=== PATIENT | female | born 1950 | race African-American/Black ===

== ENCOUNTER 2019-11-19 08:59 | Emergency (ER) | payer MEDICAID, MEDICARE ==
[~2019-11-19] VITALS: Ht 165.1 cm; Wt 59.0 kg
[2019-11-19 09:15] VITALS: BP 157/101
--- NOTE | 2019-11-19 09:24 | Emergency Room Report ---
History of Present Illness General Chief Complaint: Chest Pain Source: Patient Present Illness HPI 69-year-old female history of CAD, stents in 2010, diabetes, hypertension presents with chest pain that started 1 day ago has been constant, described as pressure-like no known alleviating factors aggravating factors appear to be dyspnea with exertion, she does endorse shortness of breath no nausea no vomiting no diaphoresis patient presents for evaluation and treatment Allergies: Coded Allergies: LITHIUM (Verified Allergy, Unknown, 11/19/19) COVID-19 Screening Contact w/high risk pt: No Experienced COVID-19 symptoms?: No COVID-19 Testing performed ASBESTOS REMOVAL WORKER: No Patient History Past Medical History: see triage record Social History: Reports: smoking Last Menstrual Period: na Reviewed Nursing Documentation: PMH: Agreed; PSxH: Agreed Nursing Documentation-PMH Past Medical History: No History, Except For Hx Hypertension: Yes Hx Diabetes: Yes Review of Systems All Other Systems: negative except mentioned in HPI Physical Exam Vital Signs Date Time Temp Pulse Resp B/P (MAP) Pulse Ox O2 Delivery O2 Flow Rate FiO2 11/19/19 08:58 98.6 82 15 146/82 (103) 98 Room Air Sp02 EP Interpretation: reviewed, normal General Appearance: well appearing, no apparent distress, alert Head: normocephalic, atraumatic Eyes: bilateral eye PERRL, bilateral eye EOMI ENT: uvula midline, moist mucus membranes Neck: supple, thyroid normal, supple/symm/no masses Respiratory: lungs clear, no respiratory distress, no retraction, no accessory muscle use Cardiovascular #1: normal peripheral pulses, regular rate, rhythm, no edema, no gallop, no murmur Gastrointestinal: non tender, soft, no guarding, no rebound Musculoskeletal: normal inspection Neurologic: alert, oriented x3 Psychiatric: mood/affect normal Skin: no rash, warm/dry Procedures Critical Care Time Critical Care Time Given the critical condition in which the patient arrived, the patient was immediately assessed by myself and the nurse, and cardiac monitoring initiated due to the potential for rapid decompensation of the patient's clinical condition. During the course of the patient's stay, I spent a considerable amount of time at the bedside performing serial re-evaluations of the patient's hemodynamic and clinical status because of the recognized potential threat to life or limb in this condition. I then had a chance to review not only all of the available current laboratory and radiographic studies obtained today, but I also reviewed old records available to me at the time. Additionally, any ancillary information available including trademark attorney records were reviewed. Sequential vital signs were obtained. Critical Care time of 31 minutes was performed exclusive of billable procedures. Medical Decision Making Diagnostic Impression: Primary Impression: Chest pain Qualified Codes: R07.9 - Chest pain, unspecified Additional Impression: NSTEMI (non-ST elevated myocardial infarction) ER Course 69-year-old female presents with chest pain concerning for possible ACS, patient with multiple risk factors, aspirin given to the patient plan for admission Patient with an elevated troponin concern for NSTEMI Patient given Lovenox, aspirin and nitroglycerin, patient with improved pain plan for transfer to [facility] Patient accepted by Dr. Alvares [id number] Laboratory Tests Test 11/19/19 09:12 White Blood Count 11.2 K/UL (4.8-10.8) H Red Blood Count 4.82 M/UL (4.20-5.40) Hemoglobin 13.3 G/DL (12.0-16.0) Hematocrit 41.2 % (37.0-47.0) Mean Corpuscular Volume 85 FL (80-99) Mean Corpuscular Hemoglobin 27.6 PG (27.0-31.0) Mean Corpuscular Hemoglobin Concent 32.2 G/DL (32.0-36.0) Red Cell Distribution Width 16.5 % (11.6-14.8) H Platelet Count 321 K/UL (150-450) Mean Platelet Volume 6.5 FL (6.5-10.1) Neutrophils (%) (Auto) 78.3 % (45.0-75.0) H Lymphocytes (%) (Auto) 12.8 % (20.0-45.0) L Monocytes (%) (Auto) 5.5 % (1.0-10.0) Eosinophils (%) (Auto) 1.7 % (0.0-3.0) Basophils (%) (Auto) 1.7 % (0.0-2.0) Sodium Level 144 MMOL/L (136-145) Potassium Level 3.9 MMOL/L (3.5-5.1) Chloride Level 107 MMOL/L (98-107) Carbon Dioxide Level 27 MMOL/L (21-32) Anion Gap 10 mmol/L (5-15) Blood Urea Nitrogen 12 mg/dL (7-18) Creatinine 1.1 MG/DL (0.55-1.30) Estimated Glomerular Filtration Rate 59.9 mL/min (>60) Glucose Level 126 MG/DL (74-106) H Calcium Level 8.6 MG/DL (8.5-10.1) Total Bilirubin 0.5 MG/DL (0.2-1.0) Aspartate Amino Transferase (AST) 21 U/L (15-37) Alanine Aminotransferase (ALT) 23 U/L (12-78) Alkaline Phosphatase 98 U/L (46-116) Troponin I 0.237 ng/mL (0.000-0.056) Total Protein 7.3 G/DL (6.4-8.2) Albumin 3.3 G/DL (3.4-5.0) L Globulin 4.0 g/dL Albumin/Globulin Ratio 0.8 (1.0-2.7) L EKG Diagnostic Results EKG Time: 08:56 EP Interpretation: NSR, rate 73, QTc 458, no acute ST elevations, flipped T waves V5 V6 Rhythm Strip Diag. Results Rhythm Strip Time: 10:34 EP Interpretation: yes Rate: 64 Rhythm: NSR, no PVC's, no ectopy Chest X-Ray Diagnostic Results Chest X-Ray Diagnostic Results : Chest X-Ray Ordered: Yes # of Views/Limited/Complete: 1 View Indication: Chest Pain EP Interpretation: Yes Interpretation: no consolidation, no effusion, no pneumothorax, no acute cardiopulmonary disease Impression: No acute disease Electronically Signed by: dR Cason MD Last Vital Signs Date Time Temp Pulse Resp B/P (MAP) Pulse Ox O2 Delivery O2 Flow Rate FiO2 11/19/19 09:16 82 18 Room Air 11/19/19 09:15 98.4 157/101 100 Disposition: SHORT-TERM HOSP Condition: Serious Rd Cason MD Nov 19, 2019 09:24
[2019-11-19 09:27] LABS: BASOPHILS % (AUTO) 1.7 % (0.0-2.0); EOSINOPHILS % (AUTO) 1.7 % (0.0-3.0); HEMATOCRIT 41.2 % (37.0-47.0); HEMOGLOBIN 13.3 G/DL (12.0-16.0); LYMPHOCYTES % (AUTO) 12.8 % (20.0-45.0); MEAN CORPUSCULAR VOLUME 85 FL (80-99); MONOCYTES % (AUTO) 5.5 % (1.0-10.0); NEUTROPHILS % (AUTO) 78.3 % (45.0-75.0); PLATELET COUNT 321 K/UL (150-450); RED BLOOD COUNT 4.82 M/UL (4.20-5.40); RED CELL DISTRIBUTION WIDTH 16.5 % (11.6-14.8); WHITE BLOOD COUNT 11.2 K/UL (4.8-10.8)
[2019-11-19 09:47] LABS: CALCIUM 8.6 MG/DL (8.5-10.1); CREATININE 1.1 MG/DL (0.55-1.30); POTASSIUM 3.9 MMOL/L (3.5-5.1)
[2019-11-19 09:51] LABS: ALBUMIN 3.3 G/DL (3.4-5.0); ALBUMIN/GLOBULIN RATIO 0.8 (1.0-2.7); BILIRUBIN,TOTAL 0.5 MG/DL (0.2-1.0)
[2019-11-19] MEDS ORDERED: Enoxaparin 60mg Inj SUBQ ONE (10:00)
[2019-11-19] MEDS ORDERED: Nitroglycerin 2% oint pkt TOPIC ONE (10:00)
[2019-11-19] MEDS ORDERED: fentaNYL 100 mcg/2 mL IV ONE ×2 (11:21→11:30)
[2019-11-19 12:45] VITALS: BP 145/82
--- NOTE | 2019-11-19 13:43 | Diagnostic Imaging Report ---
Procedure: XRAY Chest 1v Reason for study: Chest pain Comparison films: 02/12/2009. FINDINGS: A single one view chest is obtained. Vascularity is normal. The lung rothman are clear bilaterally. Cardiac and mediastinal silhouette are within normal limits. CP angles are sharp. The bony thorax appear unremarkable. IMPRESSION: NO ACUTE CARDIOPULMONARY DISEASE.
== END 2019-11-19 12:45 | disposition short-term general hospital (02) ==
LOC: EDBD 08:59 → EMR 09:34
DX: I21.4 Non-ST elevation (NSTEMI) myocardial infarction (principal); R07.9 Chest pain, unspecified; I10 Essential (primary) hypertension; E11.9 Type 2 diabetes mellitus without complications; F17.200 Nicotine dependence, unspecified, uncomplicated; Z88.8 Allergy status to other drugs, medicaments and biological substances
CPT/HCPCS: 36415; 71045; 80053; 84484; 85025; 93005; 96372; 96374; J1650; J3010; U0002; Z7502; 99291

== ENCOUNTER 2019-11-23 00:58 | Emergency (ER) | payer MEDICARE, MEDICAID ==
[~2019-11-23] VITALS: Ht 170.2 cm; Wt 72.6 kg
--- NOTE | 2019-11-23 01:01 | NUR ---
ED Nurse Note: Pt brought in by RA Tanner from [facility], pt called 911 c/o chest pain, plueritic upon inhalation. Pt is A&OX3, VSS, pt placed on jewelry sales coordinator, Pt is non-compliant with medications. Poor historian.
--- NOTE | 2019-11-23 01:15 | NUR ---
ED Nurse Note: EKG performed by RN. IV line initiated, blood drawn and sent to lab. Pt placed in gown on monitor.
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
[2019-11-23 01:26] LABS: BASOPHILS % (AUTO) 0.9 % (0.0-2.0); EOSINOPHILS % (AUTO) 1.6 % (0.0-3.0); HEMATOCRIT 41.5 % (37.0-47.0); HEMOGLOBIN 13.2 G/DL (12.0-16.0); LYMPHOCYTES % (AUTO) 17.4 % (20.0-45.0); MEAN CORPUSCULAR VOLUME 88 FL (80-99); MONOCYTES % (AUTO) 4.2 % (1.0-10.0); NEUTROPHILS % (AUTO) 75.9 % (45.0-75.0); PLATELET COUNT 282 K/UL (150-450); RED BLOOD COUNT 4.71 M/UL (4.20-5.40); RED CELL DISTRIBUTION WIDTH 17.9 % (11.6-14.8); WHITE BLOOD COUNT 10.3 K/UL (4.8-10.8)
--- NOTE | 2019-11-23 01:26 | NUR ---
ED Nurse Note: Patient states she is unable to give urine sample and does not know when she will be able to give one.
[2019-11-23 01:29] VITALS: BP 151/94
[2019-11-23 01:37] LABS: ANION GAP 10 mmol/L (5-15); BLOOD UREA NITROGEN 15 mg/dL (7-18); CALCIUM 9.1 MG/DL (8.5-10.1); CARBON DIOXIDE 25 MMOL/L (21-32); CHLORIDE 107 MMOL/L (98-107); POTASSIUM 5.5 MMOL/L (3.5-5.1); SODIUM 142 MMOL/L (136-145)
[2019-11-23] MEDS ORDERED: Morphine Sulfate 2mg/ml Inj(IV/IM USE ONLY) IVP ONE (01:45)
[2019-11-23 01:47] LABS: ALANINE AMINOTRANSFERASE 22 U/L (12-78); ALBUMIN 3.6 G/DL (3.4-5.0); ALBUMIN/GLOBULIN RATIO 0.8 (1.0-2.7); ALKALINE PHOSPHATASE 100 U/L (46-116); ASPARTATE AMINO TRANSFERASE 33 U/L (15-37); BILIRUBIN,TOTAL 0.5 MG/DL (0.2-1.0); CHOLESTEROL 225 MG/DL (< 200); HDL CHOLESTEROL 52 MG/DL (40-60); TRIGLYCERIDES 231 MG/DL (30-150)
--- NOTE | 2019-11-23 02:03 | NUR ---
ED Nurse Note: Ivn at left AC, occluded and discontinued. Patient tolerated new IV start at right forearm 22G, patent with blood return. Patient also tolerated medication administation r/t continued expression of pain at the head, chest and feet. Will continue to monitor for pain re-assessment.
[2019-11-23 02:09] VITALS: BP 142/78
[2019-11-23] MEDS ORDERED: Enalaprilat 2.5mg/2ml Inj IV ONE (02:15)
--- NOTE | 2019-11-23 02:48 | Diagnostic Imaging Report ---
EXAM: XR Chest, 1 View CLINICAL HISTORY: PAIN TECHNIQUE: Frontal view of the chest. COMPARISON: No relevant prior studies available. FINDINGS: Lungs: Low lung volumes with bronchovascular crowding. No consolidation, pleural effusion, or pneumothorax. Pleural space: See above. Heart: Probable cardiomegaly. Mediastinum: Unremarkable. Bones/joints: No acute abnormality IMPRESSION: 1. Low lung volumes with bronchovascular crowding. 2. Probable cardiomegaly. 3. Otherwise no acute cardiopulmonary disease. 4. If there is continued concern, recommend frontal and lateral chest radiographs or CT.
--- NOTE | 2019-11-23 03:40 | NUR ---
ED Nurse Note: Called [facility] once transport arrived to render report to Faith for 210-D under Dr. De La Paz.
[2019-11-23 03:43] VITALS: BP 142/78
--- NOTE | 2019-11-23 03:43 | NUR ---
ER DISCHARGE NOTE: Patient is cleared to be transferred per ERMD. Patient is in stable condition. Patient given warm blankets for transport over to [facility]. IV at right forearm still intact and patent with blood return 22G. Patient departed with all belongings.
== END 2019-11-23 03:43 | disposition other institution (70) ==
LOC: EDBD 00:58 → EMR 01:08
DX: R07.9 Chest pain, unspecified (principal); I11.0 Hypertensive heart disease with heart failure; I50.9 Heart failure, unspecified; I25.10 Atherosclerotic heart disease of native coronary artery without angina pectoris; E11.9 Type 2 diabetes mellitus without complications; E78.5 Hyperlipidemia, unspecified; F17.200 Nicotine dependence, unspecified, uncomplicated; I25.2 Old myocardial infarction; Z95.5 Presence of coronary angioplasty implant and graft; Z91.14 Patient's other noncompliance with medication regimen; Z88.8 Allergy status to other drugs, medicaments and biological substances
CPT/HCPCS: 36415; 71045; 80053; 80061; 80307; 83880; 84484; 85025; 85610; 85730; 93005; 96374; 96375; 99291; J1940; J2270; J2405

== ENCOUNTER → 2019-12-12 | Emergency (ER) | payer MEDICARE, MEDICAID ==
[~2019-12-12] VITALS: Ht 165.1 cm; Wt 73.5 kg
[~2019-12-12] MED LIST: Albuterol ud Inhalation HHN ONE; Albuterol ud Inhalation ONE; DiphenhydrAMINE 50mg/ml Inj IVP ONE; Ipratropium 0.02% Inh Soln 2.5ml UD HHN ONE; Ipratropium 0.02% Inh Soln 2.5ml UD ONE; Metoclopramide 10mg/2ml Inj IVP ONE; Metoprolol Tartrate 5mg/5ml Inj IVP STA; Nitroglycerin 2% oint pkt TOPIC ONE; oxyCODONE HCL/Acetaminophen 5/325mg ORAL ONE
--- NOTE | 2019-12-12 05:05 | NUR ---
ED Nurse Note: pt SHREE RA[address] for generalized body pain started this morning and dry cough. changed into gown; attached to monitor. patient ao4 with no acute distress. vitals stable. pt presents with thick rough very dry skin. hx eczema. all safety measures met.
[2019-12-12 05:10] VITALS: BP 160/95
--- NOTE | 2019-12-12 05:10 | NUR ---
ED Nurse Note: IV access established. blood collected; sent down to lab. unable to collect urine at this time; pt states she will provide when able; refused straight cath. ermd aware.
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
[2019-12-12 05:39] LABS: BASOPHILS % (AUTO) 2.1 % (0.0-2.0); EOSINOPHILS % (AUTO) 1.4 % (0.0-3.0); HEMATOCRIT 39.8 % (37.0-47.0); HEMOGLOBIN 13.6 G/DL (12.0-16.0); LYMPHOCYTES % (AUTO) 25.8 % (20.0-45.0); MEAN CORPUSCULAR VOLUME 82 FL (80-99); MONOCYTES % (AUTO) 6.2 % (1.0-10.0); NEUTROPHILS % (AUTO) 64.5 % (45.0-75.0); PLATELET COUNT 285 K/UL (150-450); RED BLOOD COUNT 4.85 M/UL (4.20-5.40); RED CELL DISTRIBUTION WIDTH 14.9 % (11.6-14.8); WHITE BLOOD COUNT 9.7 K/UL (4.8-10.8)
[2019-12-12 05:48] LABS: ANION GAP 9 mmol/L (5-15); BLOOD UREA NITROGEN 17 mg/dL (7-18); CALCIUM 8.4 MG/DL (8.5-10.1); CARBON DIOXIDE 26 MMOL/L (21-32); CHLORIDE 105 MMOL/L (98-107); CREATININE 1.7 MG/DL (0.55-1.30); POTASSIUM 4.3 MMOL/L (3.5-5.1); SODIUM 140 MMOL/L (136-145)
[2019-12-12 05:59] LABS: ALANINE AMINOTRANSFERASE 19 U/L (12-78); ALBUMIN 3.6 G/DL (3.4-5.0); ALKALINE PHOSPHATASE 144 U/L (46-116); ASPARTATE AMINO TRANSFERASE 24 U/L (15-37); BILIRUBIN,TOTAL 0.3 MG/DL (0.2-1.0); CREATINE KINASE 222 U/L (26-308)
[2019-12-12 06:12] VITALS: BP 159/87
--- NOTE | 2019-12-12 06:24 | NUR ---
ED Nurse Note: pt resulted covid negative. paged rt for breathing tx.
--- NOTE | 2019-12-12 07:02 | NUR ---
ED Nurse Note: report given to oren khan. [phone] patietn to be admitted to [facility] tele 204-a under the care of brad ware.
--- NOTE | 2019-12-12 07:05 | NUR ---
HAND-OFF: Report given to michelle sadler rn. patient in stable condition. endorsed pending transfer.
--- NOTE | 2019-12-12 07:10 | NUR ---
ED Nurse Note: RT at bedside.
[2019-12-12 08:52] VITALS: BP 150/89
--- NOTE | 2019-12-12 08:52 | NUR ---
ED Nurse Note: Pt was transferred to [facility] under the care of MD Gina. Report was given to ELVIA Cuevas in [facility] Tele Unit. Pt was picked up by Doretha Frazier. Pt was transferred on stabel condition; all belongings was sent with pt.
--- NOTE | 2019-12-14 06:18 | Diagnostic Imaging Report ---
EXAM: XR Chest, 1 View CLINICAL HISTORY: Chest pain. TECHNIQUE: Frontal view of the chest. COMPARISON: Chest x-ray 11/23/2019 FINDINGS/ IMPRESSION: There is no focal consolidation, pleural effusion, or pneumothorax. If there is further concern for acute intrathoracic process, which may be occult on radiograph, further evaluation with chest CT can be considered. The heart size is enlarged. Thoracic aorta demonstrates atheromatous change. There are degenerative changes of the bones. Calcified density overlying the left scapula is redemonstrated. This may be associated with the left shoulder joint. Correlation with cross-sectional imaging can be obtained as clinically warranted.
== END | disposition short-term general hospital (02) ==
LOC: EDBD 04:55 → EDUNIT# 04:55 → EMR 05:19
DX: R07.9 Chest pain, unspecified (principal); N28.9 Disorder of kidney and ureter, unspecified; I10 Essential (primary) hypertension; H10.9 Unspecified conjunctivitis; J44.9 Chronic obstructive pulmonary disease, unspecified; Z95.5 Presence of coronary angioplasty implant and graft; F17.200 Nicotine dependence, unspecified, uncomplicated; E11.9 Type 2 diabetes mellitus without complications; L30.9 Dermatitis, unspecified; Z91.14 Patient's other noncompliance with medication regimen
CPT/HCPCS: 36415; 71045; 80053; 82550; 83880; 84484; 85025; 85610; 85730; 93005; 94640; 96374; 96375; 99291; J1200; J2765; U0002

== ENCOUNTER 2020-01-14 23:02 | Inpatient (IN) | payer MEDICARE, MEDICAID ==
[~2020-01-14] VITALS: Ht 167.6 cm; Wt 71.7 kg
[2020-01-14] MEDS ORDERED: Albuterol ud Inhalation HHN ONE (23:15)
[2020-01-14] MEDS ORDERED: Ipratropium 0.02% Inh Soln 2.5ml UD HHN ONE (23:15)
[2020-01-14] MEDS ORDERED: Solu-MEDROL 125mg Inj IVP ONE (23:15)
--- NOTE | 2020-01-14 23:15 | Emergency Room Report ---
History of Present Illness General Chief Complaint: Dyspnea/Respdistress Source: Patient, Medical Record, EMS Present Illness HPI Is a 69-year-old female who is homeless. She also has a history of diabetes, high blood pressure, asthma, CAD with previous [place] status post stent in 2009. She presents with chief complaint of shortness of breath at rest or distress. Per EMS, she was in respiratory distress and tripoding with wheezing. Her pulse ox was 74% on room air. She was very tight and audible wheezing. They gave her a breathing treatment which followed up to 97% on nonrebreather. Patient's has not been taking her medication for months. She said she did not have any. Admits to smoking but no drugs. Has chest tightness. Worse with exertion. Nothing made it better. No fever chills. No congestion. Coughing is nonproductive in nature. No sick contact. Allergies: Coded Allergies: LITHIUM (Verified Allergy, Unknown, 11/19/19) COVID-19 Screening Contact w/high risk pt: No Experienced COVID-19 symptoms?: No COVID-19 Testing performed REPAIR SERVICE CLERK: No Patient History Past Medical History: see triage record, old chart reviewed, DM, HTN, IL, CAD, asthma, COPD Past Surgical History: other Pertinent Family History: none Social History: Reports: smoking Now: No Immunizations: other Reviewed Nursing Documentation: PMH: Agreed; PSxH: Agreed Nursing Documentation-PMH Hx Hypertension: Yes Hx Asthma: Yes Hx Diabetes: Yes Review of Systems Eye: Denies: eye pain, blurred vision ENT: Denies: ear pain, nose congestion, throat swelling Respiratory: Reports: cough, shortness of breath, wheezing Cardiovascular: Reports: chest pain; Denies: palpitations Gastrointestinal: Denies: abdominal pain, diarrhea, nausea, vomiting Musculoskeletal: Denies: back pain, joint pain Skin: Denies: rash Neurological: Denies: headache, numbness Endocrine: Denies: increased thirst, increased urine Hematologic/Lymphatic: Denies: easy bruising All Other Systems: negative except mentioned in HPI Physical Exam Vital Signs Date Time Temp Pulse Resp B/P (MAP) Pulse Ox O2 Delivery O2 Flow Rate FiO2 01/14/20 23:04 130 172/58 (96) 90 Non-Rebreather 15.0 Vitals with tachycardia, high blood pressure and hypoxia Sp02 EP Interpretation: reviewed, abnormal General Appearance: alert, severe distress, Chronically Ill Head: normocephalic, atraumatic Eyes: bilateral eye PERRL, bilateral eye EOMI ENT: hearing grossly normal, normal pharynx Neck: full range of motion, supple, no meningismus Respiratory: chest non-tender, respiratory distress, decreased breath sounds, accessory muscle use, wheezing Cardiovascular #1: regular rate, rhythm, no murmur Gastrointestinal: normal bowel sounds, non tender, no mass, no organomegaly, no bruit, non-distended Musculoskeletal: back normal, normal range of motion Psychiatric: mood/affect normal Procedures Critical Care Time Critical Care Time Critical care is mandated in this patient who presented with acute respiratory failure. Patient require my urgent intervention to attenuate the risks of respiratory collapse which may lead to cardiovascular collapse and . Critical care time is 35 minutes excluding any reportable procedure. Critical care time included evaluation, multiple reevaluation, looking at old charts, interpreting laboratory and diagnostic data, discussing case with patient and family and consultants, and charting. Medical Decision Making Diagnostic Impression: Primary Impression: Respiratory failure with hypoxia Qualified Codes: J96.01 - Acute respiratory failure with hypoxia Additional Impressions: Acute exacerbation of CHF (congestive heart failure) Qualified Codes: I50.9 - Heart failure, unspecified Hypertensive cardiomegaly with heart failure Cocaine abuse Hyperglycemia due to type 2 diabetes mellitus Qualified Codes: E11.65 - Type 2 diabetes mellitus with hyperglycemia COPD with exacerbation Noncompliance Homelessness Smoker ER Course Patient presents with acute respiratory failure secondary to CHF and COPD exacerbation. This probably worsened by her smoking cocaine. Much improved on BiPAP and breathing treatment. She diuresed well. First set of troponin is negative. No evidence of any ST elevation on EKG. I discussed the case with Dr. De La Paz to approve patient for admission here because she is unstable for transfer. I discussed the case with Dr. Keller for admission. EKG Diagnostic Results Troponin ordered: Yes Rate: normal, tachycardiac Rhythm: NSR ST Segments: other - poor baseline. NSST changes Rhythm Strip Diag. Results EP Interpretation: yes Rate: 115 Rhythm: NSR, no PVC's Chest X-Ray Diagnostic Results Chest X-Ray Diagnostic Results : Chest X-Ray Ordered: Yes # of Views/Limited/Complete: 1 View Indication: Shortness of Breath EP Interpretation: Yes Interpretation: no effusion, no pneumothorax, other - CM with vasc congestion. Impression: Other - CM with chf Electronically Signed by: Perfecto Devine MD Last Vital Signs Date Time Temp Pulse Resp B/P (MAP) Pulse Ox O2 Delivery O2 Flow Rate FiO2 01/14/20 23:04 130 172/58 (96) 90 Non-Rebreather 15.0 Status: improved Disposition: ADMITTED INPATIENT Condition: Serious Perfecto Devine MD Jan 14, 2020 23:15
[2020-01-14 23:30] VITALS: BP 185/133
[2020-01-14 23:31] LABS: BASOPHILS % (AUTO) 0.5 % (0.0-2.0); HEMATOCRIT 41.1 % (37.0-47.0); HEMOGLOBIN 12.6 G/DL (12.0-16.0); LYMPHOCYTES % (AUTO) 22.9 % (20.0-45.0); MEAN CORPUSCULAR VOLUME 92 FL (80-99); MONOCYTES % (AUTO) 5.3 % (1.0-10.0); NEUTROPHILS % (AUTO) 70.3 % (45.0-75.0); PLATELET COUNT 294 K/UL (150-450); RED CELL DISTRIBUTION WIDTH 16.7 % (11.6-14.8); WHITE BLOOD COUNT 13.4 K/UL (4.8-10.8)
[2020-01-14 23:40] LABS: CALCIUM 7.6 MG/DL (8.5-10.1); CREATININE 1.5 MG/DL (0.55-1.30); POTASSIUM 3.7 MMOL/L (3.5-5.1)
[2020-01-14 23:51] LABS: ALBUMIN 3.1 G/DL (3.4-5.0); ALBUMIN/GLOBULIN RATIO 0.8 (1.0-2.7); BILIRUBIN,TOTAL 0.4 MG/DL (0.2-1.0)
[2020-01-15] VITALS (10 sets, daily range): BP systolic 128–224; BP diastolic 57–124
[2020-01-15] MEDS ORDERED: Nitroglycerin 2% oint pkt TOPIC ONE (00:15)
[2020-01-15] MEDS ORDERED: Morphine Sulfate 4mg/ml Inj (IV USE ONLY) IVP ONE (00:30)
[2020-01-15 00:34] LABS: APPEARANCE,URINE CLEAR; BILIRUBIN, URINE NEGATIVE (NEGATIVE); COLOR,URINE PALE YELLOW; GLUCOSE, URINE (UA) NEGATIVE (NEGATIVE); KETONES,URINE NEGATIVE (NEGATIVE); LEUKOCYTE ESTERASE ,URINE NEGATIVE (NEGATIVE); NITRITE,URINE NEGATIVE (NEGATIVE); PH,URINE 5 (4.5-8.0); PROTEIN,URINE 1+ (NEGATIVE); UROBILINOGEN,URINE NORMAL MG/DL (0.0-1.0)
[2020-01-15] MEDS ORDERED: Ketorolac 30mg Inj IV ONE (02:45)
[2020-01-15] MEDS ORDERED: Albuterol/Ipratropium 3ml neb HHN PRN ×2 (06:15→07:15)
[2020-01-15] MEDS: NovoLOG Insulin Flexpen SUBQ SCH ×4 (06:30→21:00)
[2020-01-15] MEDS: Albuterol/Ipratropium 3ml neb HHN SCH ×3 (07:00→23:00)
[2020-01-15] MEDS ORDERED: Promethazine/Codeine 5ml UD ORAL PRN (07:15)
[2020-01-15] MEDS ORDERED: LORazepam Inj 2mg/ml 1ml IV PRN (07:15)
[2020-01-15] MEDS ORDERED: Nitroglycerin Subl 0.4mg tab SL PRN (07:15)
[2020-01-15 08:16] LABS: HEMATOCRIT 37.7 % (37.0-47.0); MEAN CORPUSCULAR VOLUME 88 FL (80-99); PLATELET COUNT 269 K/UL (150-450); RED CELL DISTRIBUTION WIDTH 15.9 % (11.6-14.8); WHITE BLOOD COUNT 7.1 K/UL (4.8-10.8)
[2020-01-15 08:36] LABS: ALBUMIN/GLOBULIN RATIO 0.8 (1.0-2.7); BILIRUBIN,TOTAL 0.5 MG/DL (0.2-1.0); CREATININE 1.4 MG/DL (0.55-1.30); PHOSPHORUS 4.3 MG/DL (2.5-4.9); POTASSIUM 3.9 MMOL/L (3.5-5.1)
[2020-01-15] MEDS ORDERED: Aspirin Baby 81mg ORAL SCH (09:00)
[2020-01-15] MEDS ORDERED: Heparin 5000 units/ml inj SUBQ SCH (09:00)
[2020-01-15] MEDS: Theophylline ER 100mg ORAL SCH ×2 (09:57→21:10)
--- NOTE | 2020-01-15 12:18 | Consultation ---
History of Present Illness General Date patient seen: Jan 15, 2020 Chief Complaint: Dyspnea/Respdistress Present Illness HPI 69-year-old female with Hx of diabetes, high blood pressure, asthma, CAD with previous [place] status post stent in 2009 presented to ER with chief complaint of shortness of breath at rest . Per EMS, she was in respiratory distress and tripoding with wheezing. Her pulse ox was 74% on room air. They gave her a breathing treatment which followed up to 97% on nonrebreather. She was in respiratory distress on arrival in ER and was started on BIPAP. Allergies: Coded Allergies: LITHIUM (Verified Allergy, Unknown, 11/19/19) Medication History No Active Prescriptions or Reported Meds Patient History Healthcare decision maker Resuscitation status Advanced Directive on File Past Medical/Surgical History Past Medical/Surgical History: (1) Noncompliance (2) Homelessness (3) Cocaine abuse (4) Hypertension (5) COPD (chronic obstructive pulmonary disease) (6) Diabetes (7) CAD (coronary artery disease) (8) NSTEMI (non-ST elevated myocardial infarction) Review of Systems All Other Systems: negative except mentioned in HPI Physical Exam General Appearance: WD/WN, no apparent distress Lines, tubes and drains: peripheral HEENT: normocephalic, atraumatic Neck: non-tender, normal alignment, supple Respiratory/Chest: chest wall non-tender, lungs clear, normal breath sounds Breasts: no masses Cardiovascular/Chest: normal peripheral pulses, normal rate Abdomen: normal bowel sounds, non tender Genitourinary/Rectal: normal genital exam Extremities: normal range of motion Last 24 Hour Vital Signs Date Time Temp Pulse Resp B/P (MAP) Pulse Ox O2 Delivery O2 Flow Rate FiO2 01/15/20 11:55 98.1 104 19 146/82 (103) 99 01/15/20 09:57 98 143/57 01/15/20 09:10 98 21 143/57 (85) 100 01/15/20 08:00 103 01/15/20 08:00 Non-Rebreather 15.0 01/15/20 08:00 15.0 01/15/20 06:35 100 Non-Rebreather 15.0 100 01/15/20 05:09 102 26 100 50 01/15/20 04:22 106 30 100 Bi-Pap 50 01/15/20 04:16 106 32 100 50 01/15/20 04:04 100 01/15/20 04:00 97.5 101 22 133/87 (102) 97 01/15/20 04:00 100 01/15/20 04:00 Non-Rebreather 15.0 01/15/20 03:50 107 26 148/85 100 Bi-pap 15.0 100 01/15/20 03:00 107 26 148/85 100 Bi-pap 15.0 100 01/15/20 02:48 109 26 100 100 01/15/20 02:00 115 18 139/81 100 Bi-pap 15.0 100 01/15/20 01:00 110 18 128/68 100 15.0 100 01/15/20 00:35 115 28 100 Bi-Pap 100 100 01/15/20 00:28 115 145/71 01/15/20 00:25 115 21 145/71 100 Bi-pap 15.0 100 01/15/20 00:11 185/133 01/15/20 00:11 185/133 01/15/20 00:05 122 32 224/124 100 Bi-pap 15.0 100 01/14/20 23:56 185/133 01/14/20 23:30 114 32 185/133 100 Bi-pap 15.0 100 01/14/20 23:17 120 32 100 Bi-Pap 100 128 29 100 100 01/14/20 23:15 130 Non-Rebreather 15.0 01/14/20 23:04 130 172/58 (96) 90 Non-Rebreather 15.0 Intake and Output 01/14/20 01/15/20 19:00 07:00 Output Total 1800 ml Balance -1800 ml Output Urine Total 1800 ml Laboratory Tests Test 01/14/20 23:10 01/15/20 00:20 01/15/20 01:10 01/15/20 07:50 White Blood Count 13.4 K/UL (4.8-10.8) H 7.1 K/UL (4.8-10.8) Red Blood Count 4.50 M/UL (4.20-5.40) 4.30 M/UL (4.20-5.40) Hemoglobin 12.6 G/DL (12.0-16.0) 12.0 G/DL (12.0-16.0) Hematocrit 41.1 % (37.0-47.0) 37.7 % (37.0-47.0) Mean Corpuscular Volume 92 FL (80-99) 88 FL (80-99) Mean Corpuscular Hemoglobin 28.1 PG (27.0-31.0) 27.9 PG (27.0-31.0) Mean Corpuscular Hemoglobin Concent 30.7 G/DL (32.0-36.0) L 31.8 G/DL (32.0-36.0) L Red Cell Distribution Width 16.7 % (11.6-14.8) H 15.9 % (11.6-14.8) H Platelet Count 294 K/UL (150-450) 269 K/UL (150-450) Mean Platelet Volume 7.7 FL (6.5-10.1) 8.0 FL (6.5-10.1) Neutrophils (%) (Auto) 70.3 % (45.0-75.0) % (45.0-75.0) Lymphocytes (%) (Auto) 22.9 % (20.0-45.0) % (20.0-45.0) Monocytes (%) (Auto) 5.3 % (1.0-10.0) % (1.0-10.0) Eosinophils (%) (Auto) 1.0 % (0.0-3.0) % (0.0-3.0) Basophils (%) (Auto) 0.5 % (0.0-2.0) % (0.0-2.0) Sodium Level 138 MMOL/L (136-145) 140 MMOL/L (136-145) Potassium Level 3.7 MMOL/L (3.5-5.1) 3.9 MMOL/L (3.5-5.1) Chloride Level 105 MMOL/L (98-107) 106 MMOL/L (98-107) Carbon Dioxide Level 24 MMOL/L (21-32) 26 MMOL/L (21-32) Anion Gap 9 mmol/L (5-15) 8 mmol/L (5-15) Blood Urea Nitrogen 11 mg/dL (7-18) 15 mg/dL (7-18) Creatinine 1.5 MG/DL (0.55-1.30) H 1.4 MG/DL (0.55-1.30) H Estimat Glomerular Filtration Rate 41.8 mL/min (>60) 45.3 mL/min (>60) Glucose Level 302 MG/DL (74-106) H 184 MG/DL (74-106) #H Lactic Acid Level 2.50 mmol/L (0.4-2.0) H 3.30 mmol/L (0.66-2.22) H 2.20 mmol/L (0.4-2.0) H Calcium Level 7.6 MG/DL (8.5-10.1) L 8.0 MG/DL (8.5-10.1) L Total Bilirubin 0.4 MG/DL (0.2-1.0) 0.5 MG/DL (0.2-1.0) Aspartate Amino Transf (AST/SGOT) 142 U/L (15-37) H 68 U/L (15-37) H Alanine Aminotransferase (ALT/SGPT) 86 U/L (12-78) H 71 U/L (12-78) Alkaline Phosphatase 220 U/L (46-116) H 186 U/L (46-116) H Troponin I 0.037 ng/mL (0.000-0.056) 0.215 ng/mL (0.000-0.056) Pro-B-Type Natriuretic Peptide 6769 pg/mL (0-125) H Total Protein 7.1 G/DL (6.4-8.2) 6.8 G/DL (6.4-8.2) Albumin 3.1 G/DL (3.4-5.0) L 3.0 G/DL (3.4-5.0) L Globulin 4.0 g/dL 3.8 g/dL Albumin/Globulin Ratio 0.8 (1.0-2.7) L 0.8 (1.0-2.7) L Urine Color Pale yellow Urine Appearance Clear Urine pH 5 (4.5-8.0) Urine Specific [place] 1.010 (1.005-1.035) Urine Protein 1+ (NEGATIVE) H Urine Glucose (UA) Negative (NEGATIVE) Urine Ketones Negative (NEGATIVE) Urine Blood Negative (NEGATIVE) Urine Nitrite Negative (NEGATIVE) Urine Bilirubin Negative (NEGATIVE) Urine Urobilinogen Normal MG/DL (0.0-1.0) Urine Leukocyte Esterase Negative (NEGATIVE) Urine RBC 0-2 /HPF (0 - 2) Urine WBC 0-2 /HPF (0 - 2) Urine Squamous Epithelial Cells Occasional /LPF Urine Bacteria Occasional /HPF (NONE) Urine Opiates Screen Negative (NEGATIVE) Urine Barbiturates Screen Negative (NEGATIVE) Phencyclidine (PCP) Screen Negative (NEGATIVE) Urine Amphetamines Screen Negative (NEGATIVE) Urine Benzodiazepines Screen Negative (NEGATIVE) Urine Cocaine Screen Positive (NEGATIVE) H Urine Marijuana (THC) Screen Negative (NEGATIVE) Differential Total Cells Counted 100 Neutrophils % (Manual) 93 % (45-75) H Lymphocytes % (Manual) 5 % (20-45) L Monocytes % (Manual) 2 % (1-10) Eosinophils % (Manual) 0 % (0-3) Basophils % (Manual) 0 % (0-2) Band Neutrophils 0 % (0-8) Platelet Estimate Adequate Platelet Morphology Normal Hypochromasia 1+ Hemoglobin A1c 6.2 % (4.3-6.0) H Phosphorus Level 4.3 MG/DL (2.5-4.9) Magnesium Level 2.5 MG/DL (1.8-2.4) H Test 01/15/20 09:45 Lactic Acid Level 2.10 mmol/L (0.66-2.22) Microbiology Date/Time Source Procedure Growth Status 01/15/20 03:00 Rectum Received 01/14/20 23:20 Nasopharynx SARS-CoV-2 RdRp Gene Assay - Final Complete Height (Feet): 5 Height (Inches): 6.00 Weight (Pounds): 158 Medications Current Medications Medications (Trade) Dose Ordered Sig/Michael Route PRN Reason Start Time Stop Time Status Last Admin Dose Admin Acetaminophen (Tylenol) 650 mg Q6H PRN ORAL Mild Pain (Pain Scale 1-3) 01/15/20 06:15 02/14/20 06:14 Acetaminophen/ Codeine Phosphate (Tylenol #3) 1 tab Q4H PRN ORAL Moderate-Severe Pain 01/15/20 06:15 01/22/20 06:14 Albuterol/ Ipratropium (Albuterol/ Ipratropium) 3 ml Q4H PRN HHN Shortness of Breath 01/15/20 06:15 01/20/20 06:14 Albuterol/ Ipratropium (Albuterol/ Ipratropium) 3 ml Q8HRT HHN 01/15/20 07:00 01/20/20 06:59 Amlodipine Besylate (Norvasc) 5 mg DAILY ORAL 01/15/20 09:00 02/14/20 08:59 01/15/20 09:57 Aspirin (ASA) 81 mg DAILY ORAL 01/15/20 09:00 02/29/20 08:59 01/15/20 09:57 Clonidine HCl (Catapres Tab) 0.1 mg Q4H PRN ORAL SBP >160 01/15/20 06:15 04/14/20 06:14 Dextrose (Dextrose 50%) 25 ml Q30M PRN IV Hypoglycemia 01/15/20 06:15 04/14/20 06:14 Dextrose (Dextrose 50%) 50 ml Q30M PRN IV Hypoglycemia 01/15/20 06:15 04/14/20 06:14 Heparin Sodium (Porcine) (Heparin 5000 units/ml) 5,000 units EVERY 8 HOURS SUBQ 01/15/20 14:00 02/29/20 13:59 Insulin Aspart (NovoLOG) BEFORE MEALS AND HS SUBQ 01/15/20 06:30 04/14/20 06:29 Lorazepam (Ativan 2mg/ml 1ml) 0.5 mg Q4H PRN IV For Anxiety 01/15/20 07:15 01/22/20 07:14 Methylprednisolone Sodium Succinate (Solu-MEDROL) 60 mg EVERY 6 HOURS IVP 01/15/20 12:00 04/14/20 11:59 Nitroglycerin (Ntg) 0.4 mg Q5M X 3 DOSES PRN SL Prn Chest Pain 01/15/20 07:15 02/14/20 07:14 Ondansetron HCl (Zofran) 4 mg Q4H PRN IVP Nausea & Vomiting 01/15/20 06:15 02/14/20 06:14 Piperacillin Sod/ Tazobactam Sod 3.375 gm/Sodium Chloride 110 ml @ 27.5 mls/hr EVERY 8 HOURS IVPB 01/15/20 14:00 01/20/20 13:59 Promethazine HCl/ Codeine (Phenergan with Codeine) 5 ml Q6H PRN ORAL cough 01/15/20 07:15 02/14/20 07:14 Temazepam (Restoril) 15 mg HSPRN PRN ORAL Insomnia 01/15/20 07:15 01/22/20 07:14 Theophylline (Justice-Dur) 100 mg EVERY 12 HOURS ORAL 01/15/20 09:00 04/14/20 08:59 01/15/20 09:57 Assessment/Plan Problem List: (1) COPD with exacerbation ICD Codes: J44.1 - Chronic obstructive pulmonary disease with (acute) exacerbation SNOMED: 004155869, 46821915 (2) Hypertension ICD Codes: I10 - Essential (primary) hypertension SNOMED: 36963361 (3) Diabetes ICD Codes: E11.9 - Type 2 diabetes mellitus without complications SNOMED: 64427113 (4) Homelessness ICD Codes: Z59.0 - Homelessness SNOMED: 99948183, 97087884 (5) Noncompliance ICD Codes: Z91.19 - Patient's noncompliance with other medical treatment and regimen SNOMED: 3208470 (6) CAD (coronary artery disease) ICD Codes: I25.10 - Atherosclerotic heart disease of [place] coronary artery without angina pectoris SNOMED: 77330216 Assessment/Plan: titrate fio2 and bipap to saturation of 92% check sputum IV steroids IV abx social service consult she is too old and fragile to live on the streets. Enmanuel Singh MD Jan 15, 2020 12:18
--- NOTE | 2020-01-15 13:09 | Cardiac Electrophysiology PN ---
Subjective Subjective 6 beats of VT and NQMI and hx of stent in [id number] Objective Last 24 Hour Vital Signs Date Time Temp Pulse Resp B/P (MAP) Pulse Ox O2 Delivery O2 Flow Rate FiO2 01/15/20 12:28 2.0 01/15/20 12:23 97 Nasal Cannula 2.0 28 01/15/20 12:00 109 01/15/20 11:55 98.1 104 19 146/82 (103) 99 01/15/20 09:57 98 143/57 01/15/20 09:10 98 21 143/57 (85) 100 01/15/20 08:00 103 01/15/20 08:00 Non-Rebreather 15.0 01/15/20 08:00 15.0 01/15/20 06:35 100 Non-Rebreather 15.0 100 01/15/20 05:09 102 26 100 50 01/15/20 04:22 106 30 100 Bi-Pap 50 01/15/20 04:16 106 32 100 50 01/15/20 04:04 100 01/15/20 04:00 97.5 101 22 133/87 (102) 97 01/15/20 04:00 100 01/15/20 04:00 Non-Rebreather 15.0 01/15/20 03:50 107 26 148/85 100 Bi-pap 15.0 100 01/15/20 03:00 107 26 148/85 100 Bi-pap 15.0 100 01/15/20 02:48 109 26 100 100 01/15/20 02:00 115 18 139/81 100 Bi-pap 15.0 100 01/15/20 01:00 110 18 128/68 100 15.0 100 01/15/20 00:35 115 28 100 Bi-Pap 100 100 01/15/20 00:28 115 145/71 01/15/20 00:25 115 21 145/71 100 Bi-pap 15.0 100 01/15/20 00:11 185/133 01/15/20 00:11 185/133 01/15/20 00:05 122 32 224/124 100 Bi-pap 15.0 100 01/14/20 23:56 185/133 01/14/20 23:30 114 32 185/133 100 Bi-pap 15.0 100 01/14/20 23:17 120 32 100 Bi-Pap 100 128 29 100 100 01/14/20 23:15 130 Non-Rebreather 15.0 01/14/20 23:04 130 172/58 (96) 90 Non-Rebreather 15.0 Intake and Output 01/14/20 01/15/20 19:00 07:00 Output Total 1800 ml Balance -1800 ml Output Urine Total 1800 ml Laboratory Tests Test 01/14/20 23:10 01/15/20 00:20 01/15/20 01:10 01/15/20 07:50 White Blood Count 13.4 K/UL (4.8-10.8) H 7.1 K/UL (4.8-10.8) Red Blood Count 4.50 M/UL (4.20-5.40) 4.30 M/UL (4.20-5.40) Hemoglobin 12.6 G/DL (12.0-16.0) 12.0 G/DL (12.0-16.0) Hematocrit 41.1 % (37.0-47.0) 37.7 % (37.0-47.0) Mean Corpuscular Volume 92 FL (80-99) 88 FL (80-99) Mean Corpuscular Hemoglobin 28.1 PG (27.0-31.0) 27.9 PG (27.0-31.0) Mean Corpuscular Hemoglobin Concent 30.7 G/DL (32.0-36.0) L 31.8 G/DL (32.0-36.0) L Red Cell Distribution Width 16.7 % (11.6-14.8) H 15.9 % (11.6-14.8) H Platelet Count 294 K/UL (150-450) 269 K/UL (150-450) Mean Platelet Volume 7.7 FL (6.5-10.1) 8.0 FL (6.5-10.1) Neutrophils (%) (Auto) 70.3 % (45.0-75.0) % (45.0-75.0) Lymphocytes (%) (Auto) 22.9 % (20.0-45.0) % (20.0-45.0) Monocytes (%) (Auto) 5.3 % (1.0-10.0) % (1.0-10.0) Eosinophils (%) (Auto) 1.0 % (0.0-3.0) % (0.0-3.0) Basophils (%) (Auto) 0.5 % (0.0-2.0) % (0.0-2.0) Sodium Level 138 MMOL/L (136-145) 140 MMOL/L (136-145) Potassium Level 3.7 MMOL/L (3.5-5.1) 3.9 MMOL/L (3.5-5.1) Chloride Level 105 MMOL/L (98-107) 106 MMOL/L (98-107) Carbon Dioxide Level 24 MMOL/L (21-32) 26 MMOL/L (21-32) Anion Gap 9 mmol/L (5-15) 8 mmol/L (5-15) Blood Urea Nitrogen 11 mg/dL (7-18) 15 mg/dL (7-18) Creatinine 1.5 MG/DL (0.55-1.30) H 1.4 MG/DL (0.55-1.30) H Estimat Glomerular Filtration Rate 41.8 mL/min (>60) 45.3 mL/min (>60) Glucose Level 302 MG/DL (74-106) H 184 MG/DL (74-106) #H Lactic Acid Level 2.50 mmol/L (0.4-2.0) H 3.30 mmol/L (0.66-2.22) H 2.20 mmol/L (0.4-2.0) H Calcium Level 7.6 MG/DL (8.5-10.1) L 8.0 MG/DL (8.5-10.1) L Total Bilirubin 0.4 MG/DL (0.2-1.0) 0.5 MG/DL (0.2-1.0) Aspartate Amino Transf (AST/SGOT) 142 U/L (15-37) H 68 U/L (15-37) H Alanine Aminotransferase (ALT/SGPT) 86 U/L (12-78) H 71 U/L (12-78) Alkaline Phosphatase 220 U/L (46-116) H 186 U/L (46-116) H Troponin I 0.037 ng/mL (0.000-0.056) 0.215 ng/mL (0.000-0.056) Pro-B-Type Natriuretic Peptide 6769 pg/mL (0-125) H Total Protein 7.1 G/DL (6.4-8.2) 6.8 G/DL (6.4-8.2) Albumin 3.1 G/DL (3.4-5.0) L 3.0 G/DL (3.4-5.0) L Globulin 4.0 g/dL 3.8 g/dL Albumin/Globulin Ratio 0.8 (1.0-2.7) L 0.8 (1.0-2.7) L Urine Color Pale yellow Urine Appearance Clear Urine pH 5 (4.5-8.0) Urine Specific [place] 1.010 (1.005-1.035) Urine Protein 1+ (NEGATIVE) H Urine Glucose (UA) Negative (NEGATIVE) Urine Ketones Negative (NEGATIVE) Urine Blood Negative (NEGATIVE) Urine Nitrite Negative (NEGATIVE) Urine Bilirubin Negative (NEGATIVE) Urine Urobilinogen Normal MG/DL (0.0-1.0) Urine Leukocyte Esterase Negative (NEGATIVE) Urine RBC 0-2 /HPF (0 - 2) Urine WBC 0-2 /HPF (0 - 2) Urine Squamous Epithelial Cells Occasional /LPF Urine Bacteria Occasional /HPF (NONE) Urine Opiates Screen Negative (NEGATIVE) Urine Barbiturates Screen Negative (NEGATIVE) Phencyclidine (PCP) Screen Negative (NEGATIVE) Urine Amphetamines Screen Negative (NEGATIVE) Urine Benzodiazepines Screen Negative (NEGATIVE) Urine Cocaine Screen Positive (NEGATIVE) H Urine Marijuana (THC) Screen Negative (NEGATIVE) Differential Total Cells Counted 100 Neutrophils % (Manual) 93 % (45-75) H Lymphocytes % (Manual) 5 % (20-45) L Monocytes % (Manual) 2 % (1-10) Eosinophils % (Manual) 0 % (0-3) Basophils % (Manual) 0 % (0-2) Band Neutrophils 0 % (0-8) Platelet Estimate Adequate Platelet Morphology Normal Hypochromasia 1+ Hemoglobin A1c 6.2 % (4.3-6.0) H Phosphorus Level 4.3 MG/DL (2.5-4.9) Magnesium Level 2.5 MG/DL (1.8-2.4) H Test 01/15/20 09:45 01/15/20 12:03 Lactic Acid Level 2.10 mmol/L (0.66-2.22) POC Whole Blood Glucose Pending Microbiology Date/Time Source Procedure Growth Status 01/15/20 03:00 Rectum Received 01/14/20 23:20 Nasopharynx SARS-CoV-2 RdRp Gene Assay - Final Complete Pawel Philip MD Jan 15, 2020 13:09
[2020-01-15] MEDS: Zoysn 3.37gm in NS 100ML IVPB SCH ×2 (13:53→21:09)
[2020-01-15] MEDS: Solu-MEDROL 125mg Inj IVP SCH ×3 (13:53→23:53)
[2020-01-15] MEDS: Heparin 5000 units/ml inj SUBQ SCH ×2 (13:54→21:17)
[2020-01-15] MEDS ORDERED: Solu-MEDROL 40mg Inj IVP SCH (14:00)
[2020-01-15] MEDS ORDERED: Piperacillin/Tazobactam 2.25 GM in D5W 55 ML IV SCH (14:00)
--- NOTE | 2020-01-15 14:14 | History & Physical ---
History and Physical History & Physicial Harpal Keller MD Jan 15, 2020 14:14
--- NOTE | 2020-01-15 14:15 | Consultation ---
History of Present Illness General Date patient seen: Jan 15, 2020 Reason for Hospitalization: Dyspnea/Respdistress Present Illness HPI This is a 69-year-old homeless female who has a history of diabetes, high blood pressure, asthma, CAD with previous [place] status post stent in 2009 who presents with c/o shortness of breath and respiratory decrease. Per EMS, she was in respiratory distress and tripoding with wheezing. Her pulse ox was 74% on room air. She was very tight and audible wheezing. They gave her a breathing treatment which followed up to 97% on nonrebreather. Patient's has not been taking her medication for months. She said she did not have any. Admits to smoking but no drugs. Has chest tightness. Worse with exertion. Nothing made it better. No fever chills. No congestion. Coughing is nonproductive in nature. No sick contact. on admission noted to have lactic acidosis and elevated lft's. surgery called to evaluate and assist with care. Allergies: Coded Allergies: LITHIUM (Verified Allergy, Unknown, 11/19/19) COVID-19 Screening Contact w/high risk pt: No Experienced COVID-19 symptoms?: Yes Coronavirus symptoms experienc: Cough Medication History No Active Prescriptions or Reported Meds Patient History History Provided By: Patient, Medical Record, PMD Healthcare decision maker Resuscitation status Advanced Directive on File Past Medical/Surgical History Past Medical/Surgical History: (1) Abnormal LFTs (2) Lactic acid acidosis (3) NSTEMI (non-ST elevated myocardial infarction) (4) CAD (coronary artery disease) (5) Diabetes (6) CHF exacerbation (7) COPD (chronic obstructive pulmonary disease) (8) Hypertension (9) Conjunctivitis, left eye (10) Cocaine abuse (11) Homelessness (12) Noncompliance (13) Respiratory failure with hypoxia (14) Hyperglycemia due to type 2 diabetes mellitus (15) Acute exacerbation of CHF (congestive heart failure) (16) COPD with exacerbation (17) Hypertensive cardiomegaly with heart failure Review of Systems Review of Symptoms General ROS: no weight loss or fever Psychological ROS: no depression or mood changes, no memory loss Ophthalmic ROS: no visual changes or eye irritation ENT ROS: no nasal congestion, hearing loss, dizziness Allergy and Immunology ROS: no allergic symptoms or urticaria Hematological and Lymphatic ROS: no swollen glands, unusual bleeding or bruising Endocrine ROS: no polyuria, polydipsia, weight changes, temperature intolerance Respiratory ROS: no cough, shortness of breath, or wheezing Cardiovascular ROS: no chest pain or dyspnea on exertion Gastrointestinal ROS: denies abdominal pain, bright red blood in stool. Musculoskeletal ROS: no myalgias or arthralgias Neurological ROS: no TIA or stroke symptoms Dermatological ROS: no new or changing skin lesions, rashes or pruritis Physical Exam Physical Exam General appearance: alert, cooperative, no distress, appears stated age Head: Normocephalic, without obvious abnormality, atraumatic Eyes: conjunctivae/corneas clear. PERRL, EOM's intact. Fundi benign Throat: Lips, mucosa, and tongue normal. Teeth and gums normal Neck: supple, symmetrical, trachea midline, no adenopathy, thyroid: not enlarged, symmetric, no tenderness/mass/nodules, no carotid bruit and no JVD Lungs: clear to auscultation bilaterally Heart: regular rate and rhythm, S1, S2 normal, no murmur, click, rub or gallop Abdomen: soft, non-tender. Bowel sounds normal. No masses, no organomegaly Extremities: extremities normal, atraumatic, no cyanosis or edema Pulses: 2+ and symmetric Skin: Skin color, texture, turgor normal. No rashes or lesions Neurologic: Grossly normal Last 24 Hour Vital Signs Date Time Temp Pulse Resp B/P (MAP) Pulse Ox O2 Delivery O2 Flow Rate FiO2 01/15/20 12:28 2.0 01/15/20 12:23 97 Nasal Cannula 2.0 28 01/15/20 12:00 109 01/15/20 12:00 Nasal Cannula 2.0 01/15/20 11:55 98.1 104 19 146/82 (103) 99 01/15/20 09:57 98 143/57 01/15/20 09:10 98 21 143/57 (85) 100 01/15/20 08:00 103 01/15/20 08:00 Non-Rebreather 15.0 01/15/20 08:00 15.0 01/15/20 06:35 100 Non-Rebreather 15.0 100 01/15/20 05:09 102 26 100 50 01/15/20 04:22 106 30 100 Bi-Pap 50 01/15/20 04:16 106 32 100 50 01/15/20 04:04 100 01/15/20 04:00 97.5 101 22 133/87 (102) 97 01/15/20 04:00 100 01/15/20 04:00 Non-Rebreather 15.0 01/15/20 03:50 107 26 148/85 100 Bi-pap 15.0 100 01/15/20 03:00 107 26 148/85 100 Bi-pap 15.0 100 01/15/20 02:48 109 26 100 100 01/15/20 02:00 115 18 139/81 100 Bi-pap 15.0 100 01/15/20 01:00 110 18 128/68 100 15.0 100 01/15/20 00:35 115 28 100 Bi-Pap 100 100 01/15/20 00:28 115 145/71 01/15/20 00:25 115 21 145/71 100 Bi-pap 15.0 100 01/15/20 00:11 185/133 01/15/20 00:11 185/133 01/15/20 00:05 122 32 224/124 100 Bi-pap 15.0 100 01/14/20 23:56 185/133 01/14/20 23:30 114 32 185/133 100 Bi-pap 15.0 100 01/14/20 23:17 120 32 100 Bi-Pap 100 128 29 100 100 01/14/20 23:15 130 Non-Rebreather 15.0 01/14/20 23:04 130 172/58 (96) 90 Non-Rebreather 15.0 Intake and Output 01/14/20 01/15/20 19:00 07:00 Output Total 1800 ml Balance -1800 ml Output Urine Total 1800 ml Laboratory Tests Test 01/14/20 23:10 01/15/20 00:20 01/15/20 01:10 01/15/20 07:50 White Blood Count 13.4 K/UL (4.8-10.8) H 7.1 K/UL (4.8-10.8) Red Blood Count 4.50 M/UL (4.20-5.40) 4.30 M/UL (4.20-5.40) Hemoglobin 12.6 G/DL (12.0-16.0) 12.0 G/DL (12.0-16.0) Hematocrit 41.1 % (37.0-47.0) 37.7 % (37.0-47.0) Mean Corpuscular Volume 92 FL (80-99) 88 FL (80-99) Mean Corpuscular Hemoglobin 28.1 PG (27.0-31.0) 27.9 PG (27.0-31.0) Mean Corpuscular Hemoglobin Concent 30.7 G/DL (32.0-36.0) L 31.8 G/DL (32.0-36.0) L Red Cell Distribution Width 16.7 % (11.6-14.8) H 15.9 % (11.6-14.8) H Platelet Count 294 K/UL (150-450) 269 K/UL (150-450) Mean Platelet Volume 7.7 FL (6.5-10.1) 8.0 FL (6.5-10.1) Neutrophils (%) (Auto) 70.3 % (45.0-75.0) % (45.0-75.0) Lymphocytes (%) (Auto) 22.9 % (20.0-45.0) % (20.0-45.0) Monocytes (%) (Auto) 5.3 % (1.0-10.0) % (1.0-10.0) Eosinophils (%) (Auto) 1.0 % (0.0-3.0) % (0.0-3.0) Basophils (%) (Auto) 0.5 % (0.0-2.0) % (0.0-2.0) Sodium Level 138 MMOL/L (136-145) 140 MMOL/L (136-145) Potassium Level 3.7 MMOL/L (3.5-5.1) 3.9 MMOL/L (3.5-5.1) Chloride Level 105 MMOL/L (98-107) 106 MMOL/L (98-107) Carbon Dioxide Level 24 MMOL/L (21-32) 26 MMOL/L (21-32) Anion Gap 9 mmol/L (5-15) 8 mmol/L (5-15) Blood Urea Nitrogen 11 mg/dL (7-18) 15 mg/dL (7-18) Creatinine 1.5 MG/DL (0.55-1.30) H 1.4 MG/DL (0.55-1.30) H Estimat Glomerular Filtration Rate 41.8 mL/min (>60) 45.3 mL/min (>60) Glucose Level 302 MG/DL (74-106) H 184 MG/DL (74-106) #H Lactic Acid Level 2.50 mmol/L (0.4-2.0) H 3.30 mmol/L (0.66-2.22) H 2.20 mmol/L (0.4-2.0) H Calcium Level 7.6 MG/DL (8.5-10.1) L 8.0 MG/DL (8.5-10.1) L Total Bilirubin 0.4 MG/DL (0.2-1.0) 0.5 MG/DL (0.2-1.0) Aspartate Amino Transf (AST/SGOT) 142 U/L (15-37) H 68 U/L (15-37) H Alanine Aminotransferase (ALT/SGPT) 86 U/L (12-78) H 71 U/L (12-78) Alkaline Phosphatase 220 U/L (46-116) H 186 U/L (46-116) H Troponin I 0.037 ng/mL (0.000-0.056) 0.215 ng/mL (0.000-0.056) Pro-B-Type Natriuretic Peptide 6769 pg/mL (0-125) H Total Protein 7.1 G/DL (6.4-8.2) 6.8 G/DL (6.4-8.2) Albumin 3.1 G/DL (3.4-5.0) L 3.0 G/DL (3.4-5.0) L Globulin 4.0 g/dL 3.8 g/dL Albumin/Globulin Ratio 0.8 (1.0-2.7) L 0.8 (1.0-2.7) L Urine Color Pale yellow Urine Appearance Clear Urine pH 5 (4.5-8.0) Urine Specific [place] 1.010 (1.005-1.035) Urine Protein 1+ (NEGATIVE) H Urine Glucose (UA) Negative (NEGATIVE) Urine Ketones Negative (NEGATIVE) Urine Blood Negative (NEGATIVE) Urine Nitrite Negative (NEGATIVE) Urine Bilirubin Negative (NEGATIVE) Urine Urobilinogen Normal MG/DL (0.0-1.0) Urine Leukocyte Esterase Negative (NEGATIVE) Urine RBC 0-2 /HPF (0 - 2) Urine WBC 0-2 /HPF (0 - 2) Urine Squamous Epithelial Cells Occasional /LPF Urine Bacteria Occasional /HPF (NONE) Urine Opiates Screen Negative (NEGATIVE) Urine Barbiturates Screen Negative (NEGATIVE) Phencyclidine (PCP) Screen Negative (NEGATIVE) Urine Amphetamines Screen Negative (NEGATIVE) Urine Benzodiazepines Screen Negative (NEGATIVE) Urine Cocaine Screen Positive (NEGATIVE) H Urine Marijuana (THC) Screen Negative (NEGATIVE) Differential Total Cells Counted 100 Neutrophils % (Manual) 93 % (45-75) H Lymphocytes % (Manual) 5 % (20-45) L Monocytes % (Manual) 2 % (1-10) Eosinophils % (Manual) 0 % (0-3) Basophils % (Manual) 0 % (0-2) Band Neutrophils 0 % (0-8) Platelet Estimate Adequate Platelet Morphology Normal Hypochromasia 1+ Hemoglobin A1c 6.2 % (4.3-6.0) H Phosphorus Level 4.3 MG/DL (2.5-4.9) Magnesium Level 2.5 MG/DL (1.8-2.4) H Test 01/15/20 09:45 01/15/20 12:03 Lactic Acid Level 2.10 mmol/L (0.66-2.22) POC Whole Blood Glucose Pending Microbiology Date/Time Source Procedure Growth Status 01/15/20 03:00 Rectum Received 01/14/20 23:20 Nasopharynx SARS-CoV-2 RdRp Gene Assay - Final Complete Height (Feet): 5 Height (Inches): 6.00 Weight (Pounds): 158 Medications Current Medications Medications (Trade) Dose Ordered Sig/Michael Route PRN Reason Start Time Stop Time Status Last Admin Dose Admin Acetaminophen (Tylenol) 650 mg Q6H PRN ORAL Mild Pain (Pain Scale 1-3) 01/15/20 06:15 02/14/20 06:14 Acetaminophen/ Codeine Phosphate (Tylenol #3) 1 tab Q4H PRN ORAL Moderate-Severe Pain 01/15/20 06:15 01/22/20 06:14 Albuterol/ Ipratropium (Albuterol/ Ipratropium) 3 ml Q4H PRN HHN Shortness of Breath 01/15/20 06:15 01/20/20 06:14 Albuterol/ Ipratropium (Albuterol/ Ipratropium) 3 ml Q8HRT HHN 01/15/20 07:00 01/20/20 06:59 Amlodipine Besylate (Norvasc) 5 mg DAILY ORAL 01/15/20 09:00 02/14/20 08:59 01/15/20 09:57 Aspirin (ASA) 81 mg DAILY ORAL 01/16/20 09:00 03/01/20 08:59 Atorvastatin Calcium (Lipitor) 20 mg BEDTIME ORAL 01/15/20 21:00 04/14/20 20:59 Clonidine HCl (Catapres Tab) 0.1 mg Q4H PRN ORAL SBP >160 01/15/20 06:15 04/14/20 06:14 Dextrose (Dextrose 50%) 25 ml Q30M PRN IV Hypoglycemia 01/15/20 06:15 04/14/20 06:14 Dextrose (Dextrose 50%) 50 ml Q30M PRN IV Hypoglycemia 01/15/20 06:15 04/14/20 06:14 Heparin Sodium (Porcine) (Heparin 5000 units/ml) 5,000 units EVERY 8 HOURS SUBQ 01/15/20 14:00 02/29/20 13:59 Insulin Aspart (NovoLOG) BEFORE MEALS AND HS SUBQ 01/15/20 06:30 04/14/20 06:29 Lorazepam (Ativan 2mg/ml 1ml) 0.5 mg Q4H PRN IV For Anxiety 01/15/20 07:15 01/22/20 07:14 Methylprednisolone Sodium Succinate (Solu-MEDROL) 60 mg EVERY 6 HOURS IVP 01/15/20 12:00 04/14/20 11:59 01/15/20 13:53 Nitroglycerin (Ntg) 0.4 mg Q5M X 3 DOSES PRN SL Prn Chest Pain 01/15/20 07:15 02/14/20 07:14 Ondansetron HCl (Zofran) 4 mg Q4H PRN IVP Nausea & Vomiting 01/15/20 06:15 02/14/20 06:14 Piperacillin Sod/ Tazobactam Sod 3.375 gm/Sodium Chloride 110 ml @ 27.5 mls/hr EVERY 8 HOURS IVPB 01/15/20 14:00 01/20/20 13:59 01/15/20 13:53 Promethazine HCl/ Codeine (Phenergan with Codeine) 5 ml Q6H PRN ORAL cough 01/15/20 07:15 02/14/20 07:14 Temazepam (Restoril) 15 mg HSPRN PRN ORAL Insomnia 01/15/20 07:15 01/22/20 07:14 Theophylline (Justice-Dur) 100 mg EVERY 12 HOURS ORAL 01/15/20 09:00 04/14/20 08:59 01/15/20 09:57 Assessment/Plan Problem List: (1) Lactic acid acidosis Assessment & Plan: 69F admitted with lactic acidosis abnormal lft's respiratory insufficiency labs improving dehydrated resuscitation trend labs okay for diet no n/v/f/c respiratory tx ICD Codes: E87.2 - Acidosis SNOMED: 41979997 (2) Abnormal LFTs Assessment & Plan: mild elevation in LFT's. likely from meds vs dehydration okay for diet US ordered will follow with resc thank you ICD Codes: R94.5 - Abnormal results of liver function studies SNOMED: 620958613 (3) NSTEMI (non-ST elevated myocardial infarction) ICD Codes: I21.4 - Non-ST elevation (NSTEMI) myocardial infarction SNOMED: 54627844 (4) CAD (coronary artery disease) ICD Codes: I25.10 - Atherosclerotic heart disease of circle coronary artery without angina pectoris SNOMED: 36929434 (5) Diabetes ICD Codes: E11.9 - Type 2 diabetes mellitus without complications SNOMED: 85360945 (6) CHF exacerbation ICD Codes: I50.9 - Heart failure, unspecified SNOMED: 522172322, 12085707383085 (7) COPD (chronic obstructive pulmonary disease) ICD Codes: J44.9 - Chronic obstructive pulmonary disease, unspecified SNOMED: 39912302 (8) Hypertension ICD Codes: I10 - Essential (primary) hypertension SNOMED: 78977585 (9) Conjunctivitis, left eye ICD Codes: H10.9 - Unspecified conjunctivitis SNOMED: 2090318 (10) Cocaine abuse ICD Codes: F14.10 - Cocaine abuse, uncomplicated SNOMED: 57711048 (11) Homelessness ICD Codes: Z59.0 - Homelessness SNOMED: 37458143, 93805686 (12) Noncompliance ICD Codes: Z91.19 - Patient's noncompliance with other medical treatment and regimen SNOMED: 4426751 (13) Respiratory failure with hypoxia ICD Codes: J96.91 - Respiratory failure, unspecified with hypoxia SNOMED: 01581192419846107 Qualifiers: Qualified Codes: J96.01 - Acute respiratory failure with hypoxia (14) Hyperglycemia due to type 2 diabetes mellitus ICD Codes: E11.65 - Type 2 diabetes mellitus with hyperglycemia SNOMED: 822109532765231, 31566092 Qualifiers: Qualified Codes: E11.65 - Type 2 diabetes mellitus with hyperglycemia (15) Acute exacerbation of CHF (congestive heart failure) ICD Codes: I50.9 - Heart failure, unspecified SNOMED: 519130259, 58574631317612 Qualifiers: Qualified Codes: I50.9 - Heart failure, unspecified (16) COPD with exacerbation ICD Codes: J44.1 - Chronic obstructive pulmonary disease with (acute) exacerbation SNOMED: 175471183, 93329958 (17) Hypertensive cardiomegaly with heart failure ICD Codes: I11.0 - Hypertensive heart disease with heart failure SNOMED: 731764940, 15117823 Eduardo Amanda Jan 15, 2020 14:15
--- NOTE | 2020-01-15 17:15 | Consultation ---
DATE OF CONSULTATION: 01/15/2020 CARDIOLOGY CONSULTATION CONSULTING PHYSICIAN: Pawel Philip MD REFERRING PHYSICIAN: Harpal Keller MD REASON FOR CONSULTATION: Shortness of breath in the patient with coronary artery disease as well as ventricular tachycardia. HISTORY OF PRESENT ILLNESS: The patient is a 69-year-old lady with history of hypertension, coronary artery disease, prior myocardial infarction, stent placement in 2009, as well as hypertension, diabetes, and asthma, who is homeless and presented to the emergency room for increasing shortness of breath. Per the paramedics, the patient was tripoding and wheezing, and pulse-ox was 74% on room air. The patient had audible wheezing. She received breathing treatment. The patient stated that she was not taking her medication for months as she has not had any. The patient continues to smoke when she does not do any drugs. On telemetry, the patient had 6 beats of ventricular tachycardia and a Cardiology consultation was obtained for further evaluation. REVIEW OF SYSTEMS: Negative other than what is mentioned in the history of present illness. PAST MEDICAL HISTORY: As mentioned above. FAMILY HISTORY: Noncontributory. SOCIAL HISTORY: She is homeless. Continues to smoke. Does not drink alcohol or use drugs. PHYSICAL EXAMINATION: VITAL SIGNS: Show blood pressure of 146/82, pulse 109, respirations 18, and temperature 98.1. HEAD AND NECK: Showed no JVD. LUNGS: Clear. CARDIOVASCULAR: Shows regular S1 and S2 with no gallop or murmur. ABDOMEN: Soft. EXTREMITIES: No pitting edema. LABORATORY AND DIAGNOSTIC DATA: Labs show white count of 7.1, hemoglobin 12, hematocrit 37.7, and platelet count of 269,000. Sodium 140, potassium 3.9, BUN of 15, creatinine 1.4, and glucose of 184. Troponin 0.215. ASSESSMENT AND PLAN: 1. Vtt-[id number]-[id number] myocardial infarction. Initial troponin was negative. The second troponin is 0.215. The patient also has history of known coronary artery disease prior to the stent placement in 2009. We will completely rule out [place] protocol and repeat EKG and get an echocardiogram for further evaluation. In the meantime, avoid beta-emery as the patient has severe wheezing and asthma, but continue the patient on aspirin and statin. 2. Six beats of nonsustained ventricular tachycardia, could be due to myocardial infarction. Again, echocardiogram is pending. Again, cannot use beta-emery. 3. Severe COPD and wheezing, on IV antibiotic and Solu-Medrol. 4. Hypertension, on Norvasc 5 mg daily. 5. Diabetes, on insulin. Thank you very much for allowing me to participate in the care of this patient. Please do not hesitate to contact me for any questions regarding my evaluation. Pawel Philip M.D. DR: Ashlyn JOB#: [id number] CC:
--- NOTE | 2020-01-15 17:31 | Diagnostic Imaging Report ---
Indication: Shortness of breath Technique: One view of the chest Comparison: 12/12/2019 Findings: The heart is enlarged. There is bilateral perihilar interstitial congestion which is new or increased from the prior exam. The pleural spaces are clear. Impression: Cardiomegaly Bilateral perihilar interstitial edema
--- NOTE | 2020-01-15 19:14 | History and Physical Report ---
DATE OF ADMISSION: 01/15/2020 CHIEF COMPLAINT: Shortness of breath. HISTORY OF PRESENT ILLNESS: This is a 69-year-old female with past medical history significant for diabetes type 2, hypertension, asthma, coronary artery disease with prior history of myocardial infarction, status post of stent placement in 2009, and noncompliance with medication who presented to the emergency department complaining about shortness of breath. The patient was presented to the emergency room via EMS. Noted patient in respiratory distress, tripoding with wheezing. Her pulse oxygenation was 74% on room air. Patient was tight and audible wheezes. She received a nebulizer treatment and noted patient has been noncompliance with medication. She did not have any medication. She denies any smoking or alcohol abuse. She complained about chest tightness worsening on exertion. No fever or chills. No nausea or vomiting. Complained about cough, nonproductive nature. Denies any sick contacts. Shortly after initial evaluation in the emergency department, patient started on the BiPAP and subsequently was admitted to step-down due to the acute hypoxemic respiratory failure, possibly due to acute on chronic congestive heart failure with COPD exacerbation. PAST MEDICAL HISTORY/PAST SURGICAL HISTORY: As above history of abnormal liver function, lactic acidosis, non-ST elevation AR with history of prior coronary artery disease, diabetes type 2 uncontrolled, CHF, COPD, hypertension, left eye conjunctivitis, cocaine abuse, homeless, noncompliance to medication, history of hyperglycemia due to the noncompliance with medication as a result of diabetes type 2, hypertensive cardiomyopathy, and hypertensive heart disease. MEDICATIONS: At home, please refer to medication reconciliation. ALLERGIES: To lithium. SOCIAL HISTORY: Patient denies any smoking, alcohol, or drugs. FAMILY HISTORY: Noncontributory. REVIEW OF SYSTEMS: Mostly as above. Denies any dysuria, frequency, or hematuria. Complained of shortness of breath and cough. PHYSICAL EXAMINATION: VITAL SIGNS: On admission, temperature 97.5, pulse of 101, respirations 22, blood pressure 133/87. GENERAL: Patient is awake, responsive, uncooperative. HEAD AND NECK: Pupils are equal and reactive to light. Extraocular movements intact. NECK: Supple. No JVD. LUNGS: Good air. Patient has expiratory wheezes. Decreased air in bases. No rhonchi. HEART: S1, S2. Distant heart sounds. No murmur or gallops. ABDOMEN: Soft, nondistended, nontender. Positive bowel sounds. EXTREMITIES: No cyanosis, clubbing, or edema. NEUROLOGIC: Cranial nerves II through XII grossly intact. Patient is moving all extremities. Gait was not assessed due to patient's status. RECTAL: Refused and deferred. GENITOURINARY: Refused and deferred. PSYCHIATRIC: Mood and affect is anxious. LABORATORY DATA: On admission from the emergency department, WBC of 13, hemoglobin of 12, hematocrit 41, platelet is 294. Sodium 138, potassium 3.7, chloride 105, bicarb 24, BUN 11, creatinine 1.5, glucose is 302. Patient's lactic acid is 2.5, repeat one 3.3. Calcium 7.6. Troponin 0.37, repeat one 0.215. AST of 142, ALT of 86, alkaline phosphatase was 220. ProBNP of 6769. Urine drug screen positive for cocaine. Urinalysis +1 protein. Chest x-ray, cardiomegaly with bilateral perihilar interstitial edema. COVID-19 test negative. ASSESSMENT: 1. Acute hypoxemic respiratory failure, most likely secondary to acute CHF exacerbation in conjunction with COPD exacerbation. 2. Lactic acidosis. 3. Abnormal liver function. 4. Coronary artery disease with prior history of myocardial infarction. 5. Elevated troponin, most likely secondary to non-ST elevation AR as a result of demand ischemia. 6. Diabetes type 2, uncontrolled. 7. Acute on chronic congestive heart failure. 8. Acute COPD exacerbation. 9. Hypertension. 10. Left eye conjunctivitis. 11. History of cocaine abuse. 12. Homeless. 13. Noncompliance with medication. 14. Hyperglycemia. 15. Possible underlying psychiatric disorder. PLAN: Admit patient to step-down. We will follow up with the laboratory as well as culture. Broad-spectrum antibiotic with Zosyn. Nebulizer treatment, Solu-Medrol 60 mg IV q.6. Follow up with Dr. Singh, Pulmonary Critical Care consultation and Dr. Amanda from Surgery and Dr. Philip from Cardiology/ Electrophysiology. Code status is Full Code. DVT prophylaxis with heparin subcutaneous. Harpal Keller M.D. DR: ANDREZ/SD JOB#: [id number] CC:
[2020-01-15] MEDS: Atorvastatin 20mg tab ORAL SCH (21:09)
[2020-01-16] VITALS: BP 146/96
[2020-01-16] MEDS: Tylenol #3 tab (300mg/30mg) ORAL PRN ×4 (03:06→23:37)
[2020-01-16 04:00] VITALS: BP 125/75
[2020-01-16 05:26] LABS: BASOPHILS % (AUTO) 0.4 % (0.0-2.0); EOSINOPHILS % (AUTO) 0.1 % (0.0-3.0); HEMATOCRIT 37.7 % (37.0-47.0); HEMOGLOBIN 11.5 G/DL (12.0-16.0); LYMPHOCYTES % (AUTO) 7.7 % (20.0-45.0); MEAN CORPUSCULAR VOLUME 90 FL (80-99); MONOCYTES % (AUTO) 6.9 % (1.0-10.0); NEUTROPHILS % (AUTO) 84.9 % (45.0-75.0); PLATELET COUNT 272 K/UL (150-450); RED BLOOD COUNT 4.18 M/UL (4.20-5.40); RED CELL DISTRIBUTION WIDTH 16.4 % (11.6-14.8); WHITE BLOOD COUNT 11.9 K/UL (4.8-10.8)
[2020-01-16 05:47] LABS: ALANINE AMINOTRANSFERASE 61 U/L (12-78); ALBUMIN 2.9 G/DL (3.4-5.0); ALBUMIN/GLOBULIN RATIO 0.8 (1.0-2.7); ALKALINE PHOSPHATASE 175 U/L (46-116); AMYLASE 139 U/L (25-115); ANION GAP 9 mmol/L (5-15); ASPARTATE AMINO TRANSFERASE 45 U/L (15-37); BILIRUBIN,TOTAL 0.3 MG/DL (0.2-1.0); BLOOD UREA NITROGEN 27 mg/dL (7-18); CALCIUM 7.9 MG/DL (8.5-10.1); CARBON DIOXIDE 26 MMOL/L (21-32); CHLORIDE 106 MMOL/L (98-107); CREATININE 1.6 MG/DL (0.55-1.30); PHOSPHORUS 3.3 MG/DL (2.5-4.9); POTASSIUM 4.3 MMOL/L (3.5-5.1); SODIUM 141 MMOL/L (136-145)
[2020-01-16] MEDS: Heparin 5000 units/ml inj SUBQ SCH ×3 (06:00→22:00)
[2020-01-16] MEDS: Solu-MEDROL 125mg Inj IVP SCH ×2 (06:15→10:00)
[2020-01-16] MEDS: Zoysn 3.37gm in NS 100ML IVPB SCH ×3 (06:15→22:00)
[2020-01-16] MEDS: NovoLOG Insulin Flexpen SUBQ SCH ×4 (06:21→21:00)
[2020-01-16] MEDS: Albuterol/Ipratropium 3ml neb HHN SCH ×3 (07:43→23:00)
[2020-01-16 08:00] VITALS: BP 146/95
[2020-01-16] MEDS: Aspirin Baby 81mg ORAL SCH (09:29)
[2020-01-16] MEDS: Theophylline ER 100mg ORAL SCH ×2 (09:29→21:00)
--- NOTE | 2020-01-16 09:31 | Pulmonology Progress Note ---
Subjective ROS Limited/Unobtainable: No Constitutional: Reports: no symptoms HEENT: Repors: no symptoms Allergies: Coded Allergies: LITHIUM (Verified Allergy, Unknown, 11/19/19) Objective Last 24 Hour Vital Signs Date Time Temp Pulse Resp B/P (MAP) Pulse Ox O2 Delivery O2 Flow Rate FiO2 01/16/20 08:00 97.3 99 14 146/95 (112) 91 01/16/20 07:48 85 16 95 Nasal Cannula 2.0 28 83 16 92 01/16/20 07:43 97 Nasal Cannula 2.0 28 01/16/20 04:00 2.0 01/16/20 04:00 98.3 104 22 125/75 (92) 95 01/16/20 04:00 105 01/16/20 00:00 107 01/16/20 00:00 97.7 112 20 146/96 (113) 98 01/16/20 00:00 2.0 01/16/20 00:00 Nasal Cannula 2.0 01/15/20 20:00 Nasal Cannula 2.0 01/15/20 20:00 103 01/15/20 20:00 97.0 104 20 129/67 (87) 97 01/15/20 20:00 2.0 01/15/20 19:13 97 Nasal Cannula 2.0 28 01/15/20 16:00 98.3 95 17 132/69 (90) 97 01/15/20 16:00 91 01/15/20 16:00 Nasal Cannula 2.0 01/15/20 16:00 2.0 01/15/20 12:28 2.0 01/15/20 12:23 97 Nasal Cannula 2.0 28 01/15/20 12:00 109 01/15/20 12:00 Nasal Cannula 2.0 01/15/20 11:55 98.1 104 19 146/82 (103) 99 01/15/20 09:57 98 143/57 Intake and Output 01/15/20 01/16/20 19:00 07:00 Intake Total 482.5 ml 417.0 ml Output Total 450 ml Balance 32.5 ml 417.0 ml Intake Oral 400 ml 350 ml IV Total 82.5 ml 67.0 ml Output Urine Total 450 ml General Appearance: WD/WN HEENT: normocephalic, atraumatic Respiratory: chest wall non-tender, lungs clear Breasts: no masses Cardiovascular: normal peripheral pulses Abdomen: normal bowel sounds, soft, non tender Neurologic: desk interviewer II-XII grossly normal Microbiology Date/Time Source Procedure Growth Status 01/15/20 03:00 Rectum Received 01/14/20 23:20 Arm Left Blood Culture - Preliminary NO GROWTH AFTER 24 HOURS Resulted 01/14/20 23:20 Nasopharynx SARS-CoV-2 RdRp Gene Assay - Final Complete 01/14/20 23:15 Arm Left Blood Culture - Preliminary NO GROWTH AFTER 24 HOURS Resulted Laboratory Tests 01/15/20 09:45: Lactic Acid Level 2.10 01/15/20 12:03: POC Whole Blood Glucose [Pending] 01/15/20 16:41: POC Whole Blood Glucose 110H 01/16/20 03:10: White Blood Count 11.9#H, Red Blood Count 4.18L, Hemoglobin 11.5L, Hematocrit 37.7, Mean Corpuscular Volume 90, Mean Corpuscular Hemoglobin 27.6, Mean Corpuscular Hemoglobin Concent 30.6L, Red Cell Distribution Width 16.4H, Platelet Count 272, Mean Platelet Volume 8.4, Neutrophils (%) (Auto) 84.9H, Lymphocytes (%) (Auto) 7.7L, Monocytes (%) (Auto) 6.9, Eosinophils (%) (Auto) 0.1, Basophils (%) (Auto) 0.4, Erythrocyte Sedimentation Rate 20, Sodium Level 141, Potassium Level 4.3, Chloride Level 106, Carbon Dioxide Level 26, Anion Gap 9, Blood Urea Nitrogen 27H, Creatinine 1.6H, Estimat Glomerular Filtration Rate 38.9, Glucose Level 88, Calcium Level 7.9L, Phosphorus Level 3.3, Magnesium Level 2.7H, Total Bilirubin 0.3, Aspartate Amino Transf (AST/SGOT) 45H, Alanine Aminotransferase (ALT/SGPT) 61, Alkaline Phosphatase 175H, Troponin I 0.101H, C- Reactive Protein, Quantitative < 0.4, Total Protein 6.7, Albumin 2.9L, Globulin 3.8, Albumin/Globulin Ratio 0.8L, Amylase Level 139H, Lipase 498H Current Medications Medications (Trade) Dose Ordered Sig/Michael Route PRN Reason Start Time Stop Time Status Last Admin Dose Admin Acetaminophen (Tylenol) 650 mg Q6H PRN ORAL Mild Pain (Pain Scale 1-3) 01/15/20 06:15 02/14/20 06:14 Acetaminophen/ Codeine Phosphate (Tylenol #3) 1 tab Q4H PRN ORAL Moderate-Severe Pain 01/15/20 06:15 01/22/20 06:14 01/16/20 03:06 Albuterol/ Ipratropium (Albuterol/ Ipratropium) 3 ml Q4H PRN HHN Shortness of Breath 01/15/20 06:15 01/20/20 06:14 Albuterol/ Ipratropium (Albuterol/ Ipratropium) 3 ml Q8HRT HHN 01/15/20 07:00 01/20/20 06:59 01/16/20 07:43 Amlodipine Besylate (Norvasc) 5 mg DAILY ORAL 01/15/20 09:00 02/14/20 08:59 01/15/20 09:57 Aspirin (ASA) 81 mg DAILY ORAL 01/16/20 09:00 03/01/20 08:59 Atorvastatin Calcium (Lipitor) 20 mg BEDTIME ORAL 01/15/20 21:00 04/14/20 20:59 01/15/20 21:09 Clonidine HCl (Catapres Tab) 0.1 mg Q4H PRN ORAL SBP >160 01/15/20 06:15 04/14/20 06:14 Dextrose (Dextrose 50%) 25 ml Q30M PRN IV Hypoglycemia 01/15/20 06:15 04/14/20 06:14 Dextrose (Dextrose 50%) 50 ml Q30M PRN IV Hypoglycemia 01/15/20 06:15 04/14/20 06:14 Heparin Sodium (Porcine) (Heparin 5000 units/ml) 5,000 units EVERY 8 HOURS SUBQ 01/15/20 14:00 02/29/20 13:59 Insulin Aspart (NovoLOG) BEFORE MEALS AND HS SUBQ 01/15/20 06:30 04/14/20 06:29 Lorazepam (Ativan 2mg/ml 1ml) 0.5 mg Q4H PRN IV For Anxiety 01/15/20 07:15 01/22/20 07:14 Methylprednisolone Sodium Succinate (Solu-MEDROL) 60 mg EVERY 6 HOURS IVP 01/15/20 12:00 04/14/20 11:59 01/16/20 06:15 Nitroglycerin (Ntg) 0.4 mg Q5M X 3 DOSES PRN SL Prn Chest Pain 01/15/20 07:15 02/14/20 07:14 Ondansetron HCl (Zofran) 4 mg Q4H PRN IVP Nausea & Vomiting 01/15/20 06:15 02/14/20 06:14 Piperacillin Sod/ Tazobactam Sod 3.375 gm/Sodium Chloride 110 ml @ 27.5 mls/hr EVERY 8 HOURS IVPB 01/15/20 14:00 01/20/20 13:59 01/16/20 06:15 Promethazine HCl/ Codeine (Phenergan with Codeine) 5 ml Q6H PRN ORAL cough 01/15/20 07:15 02/14/20 07:14 Temazepam (Restoril) 15 mg HSPRN PRN ORAL Insomnia 01/15/20 07:15 01/22/20 07:14 Theophylline (Justice-Dur) 100 mg EVERY 12 HOURS ORAL 01/15/20 09:00 04/14/20 08:59 01/15/20 21:10 Assessment/Plan Problems: (1) COPD with exacerbation (2) Hypertension (3) Diabetes (4) Homelessness (5) Noncompliance (6) CAD (coronary artery disease) Assessment/Plan improving in a very bad mood, abusive towards nurses and physicians titrate fio2 and bipap to saturation of 92% check sputum IV steroids, taper to QD IV abx, no Sputum yet pt refusing cardiac monitoring, I will down grade her to med/surg/ social service consult Enmanuel Singh MD Jan 16, 2020 09:31
[2020-01-16 09:46] LABS: CREATINE KINASE 186 U/L (26-308)
[2020-01-16 11:05] LABS: CHOLESTEROL 198 MG/DL (< 200); HDL CHOLESTEROL 49 MG/DL (40-60); TRIGLYCERIDES 119 MG/DL (30-150)
--- NOTE | 2020-01-16 11:24 | Consultation ---
Consult Note Consult Note I am asked to evaluate the patient at the request of Dr. Keller for rising serum creatinine Is a 69-year-old female who is homeless. She also has a history of diabetes, high blood pressure, asthma, CAD with previous SC status post stent in 2009. She presents with chief complaint of shortness of breath at rest or distress. Per EMS, she was in respiratory distress and tripoding with wheezing. Her pulse ox was 74% on room air. She was very tight and audible wheezing. They gave her a breathing treatment which followed up to 97% on nonrebreather. Patient's has not been taking her medication for months. She said she did not have any. Admits to smoking but no drugs. Has chest tightness. Worse with exertion. Nothing made it better. No fever chills. No congestion. Coughing is nonproductive in nature. No sick contact. Allergies: LITHIUM (Verified Allergy, Unknown, 11/19/19) COVID-19 Screening Contact w/high risk pt: No Experienced COVID-19 symptoms?: No COVID-19 Testing performed SUPERVISING ARCHITECT: No Past Medical History: see triage record, old chart reviewed, DM, HTN, SC, CAD, asthma, COPD Social History: Reports: smoking Hx Hypertension: Yes Hx Asthma: Yes Hx Diabetes: Yes VITAL SIGNS: On admission, temperature 97.5, pulse of 101, respirations 22, blood pressure 133/87. GENERAL: Patient is awake, responsive, uncooperative. HEAD AND NECK: Pupils are equal and reactive to light. Extraocular movements intact. NECK: Supple. No JVD. LUNGS: Good air. Patient has expiratory wheezes. Decreased air in bases. No rhonchi. HEART: S1, S2. Distant heart sounds. No murmur or gallops. ABDOMEN: Soft, nondistended, nontender. Positive bowel sounds. EXTREMITIES: No cyanosis, clubbing, or edema. NEUROLOGIC: Cranial nerves II through XII grossly intact. Patient is moving all extremities. Gait was not assessed due to patient's status. RECTAL: Refused and deferred. GENITOURINARY: Refused and deferred. PSYCHIATRIC: Mood and affect is anxious. LABORATORY DATA: On admission from the emergency department, WBC of 13, hemoglobin of 12, hematocrit 41, platelet is 294. Sodium 138, potassium 3.7, chloride 105, bicarb 24, BUN 11, creatinine 1.5, glucose is 302. Patient's lactic acid is 2.5, repeat one 3.3. Calcium 7.6. Troponin 0.37, repeat one 0.215. AST of 142, ALT of 86, alkaline phosphatase was 220. ProBNP of 6769. Urine drug screen positive for cocaine. Urinalysis +1 protein. Chest x-ray, cardiomegaly with bilateral perihilar interstitial edema. COVID-19 test negative. . Assessment/Plan Acute renal failure most likely superimposed on chronic kidney failure Presented with respiratory failure and hypoxia Hyb-[id number] myocardial infarction. Exacerbation of CHF, echocardiogram shows ejection fraction of 45% Hypertensive cardiomyopathy Cocaine abuse Diabetes type 1 COPD/exacerbation Smoker Noncompliant Homelessness Elevated lipase level Suggestions: Optimize cardiac and pulmonary status Monitor renal parameters and electrolytes Avoid nephrotoxic's Per orders Ignacio Callahan MD Jan 16, 2020 11:24
[2020-01-16] MEDS: Docusate 100mg cap ORAL SCH ×2 (13:00→17:33)
--- NOTE | 2020-01-16 13:09 | Cardiac Electrophysiology PN ---
Assessment/Plan Assessment/Plan 1. Vlr-[id number] myocardial infarction. Initial troponin was negative. The second troponin is 0.215. The patient also has history of known coronary artery disease prior to the stent placement in 2009. Refused ECG and Echo showed EF 45% Avoid beta-emery as the patient has severe wheezing and asthma, but continue the patient on aspirin and statin. 2. Six beats of nonsustained ventricular tachycardia, could be due to myocardial infarction. EF 45% 3. Severe COPD and wheezing, on IV antibiotic and Solu-Medrol. 4. Hypertension, on Norvasc 5 mg daily. 5. Diabetes, on insulin. 6. Noncompliant DW RN Subjective Subjective 6 beats of VT and NQMI and hx of stent in 2009 Refusing meds and tests. Just wants food and narcotics. Objective Last 24 Hour Vital Signs Date Time Temp Pulse Resp B/P (MAP) Pulse Ox O2 Delivery O2 Flow Rate FiO2 01/16/20 09:29 99 146/95 01/16/20 09:00 Room Air 01/16/20 08:00 96 01/16/20 08:00 97.3 99 14 146/95 (112) 91 01/16/20 07:48 85 16 95 Nasal Cannula 2.0 28 83 16 92 01/16/20 07:43 97 Nasal Cannula 2.0 28 01/16/20 04:00 2.0 01/16/20 04:00 98.3 104 22 125/75 (92) 95 01/16/20 04:00 105 01/16/20 00:00 107 01/16/20 00:00 97.7 112 20 146/96 (113) 98 01/16/20 00:00 2.0 01/16/20 00:00 Nasal Cannula 2.0 01/15/20 20:00 Nasal Cannula 2.0 01/15/20 20:00 103 01/15/20 20:00 97.0 104 20 129/67 (87) 97 01/15/20 20:00 2.0 01/15/20 19:13 97 Nasal Cannula 2.0 28 01/15/20 16:00 98.3 95 17 132/69 (90) 97 01/15/20 16:00 91 01/15/20 16:00 Nasal Cannula 2.0 01/15/20 16:00 2.0 Intake and Output 01/15/20 01/16/20 19:00 07:00 Intake Total 482.5 ml 417.0 ml Output Total 450 ml Balance 32.5 ml 417.0 ml Intake Oral 400 ml 350 ml IV Total 82.5 ml 67.0 ml Output Urine Total 450 ml Laboratory Tests Test 01/15/20 16:41 01/16/20 03:10 POC Whole Blood Glucose 110 MG/DL (74-106) H White Blood Count 11.9 K/UL (4.8-10.8) #H Red Blood Count 4.18 M/UL (4.20-5.40) L Hemoglobin 11.5 G/DL (12.0-16.0) L Hematocrit 37.7 % (37.0-47.0) Mean Corpuscular Volume 90 FL (80-99) Mean Corpuscular Hemoglobin 27.6 PG (27.0-31.0) Mean Corpuscular Hemoglobin Concent 30.6 G/DL (32.0-36.0) L Red Cell Distribution Width 16.4 % (11.6-14.8) H Platelet Count 272 K/UL (150-450) Mean Platelet Volume 8.4 FL (6.5-10.1) Neutrophils (%) (Auto) 84.9 % (45.0-75.0) H Lymphocytes (%) (Auto) 7.7 % (20.0-45.0) L Monocytes (%) (Auto) 6.9 % (1.0-10.0) Eosinophils (%) (Auto) 0.1 % (0.0-3.0) Basophils (%) (Auto) 0.4 % (0.0-2.0) Erythrocyte Sedimentation Rate 20 MM/HR (0-30) Sodium Level 141 MMOL/L (136-145) Potassium Level 4.3 MMOL/L (3.5-5.1) Chloride Level 106 MMOL/L (98-107) Carbon Dioxide Level 26 MMOL/L (21-32) Anion Gap 9 mmol/L (5-15) Blood Urea Nitrogen 27 mg/dL (7-18) H Creatinine 1.6 MG/DL (0.55-1.30) H Estimat Glomerular Filtration Rate 38.9 mL/min (>60) Glucose Level 88 MG/DL (74-106) Uric Acid 7.1 MG/DL (2.6-7.2) Calcium Level 7.9 MG/DL (8.5-10.1) L Phosphorus Level 3.3 MG/DL (2.5-4.9) Magnesium Level 2.7 MG/DL (1.8-2.4) H Total Bilirubin 0.3 MG/DL (0.2-1.0) Aspartate Amino Transf (AST/SGOT) 45 U/L (15-37) H Alanine Aminotransferase (ALT/SGPT) 61 U/L (12-78) Alkaline Phosphatase 175 U/L (46-116) H Total Creatine Kinase 186 U/L (26-308) Troponin I 0.101 ng/mL (0.000-0.056) C-Reactive Protein, Quantitative < 0.4 mg/dL (0.00-0.90) Total Protein 6.7 G/DL (6.4-8.2) Albumin 2.9 G/DL (3.4-5.0) L Globulin 3.8 g/dL Albumin/Globulin Ratio 0.8 (1.0-2.7) L Triglycerides Level 119 MG/DL (30-150) Cholesterol Level 198 MG/DL (< 200) LDL Cholesterol 114 mg/dL (<100) H HDL Cholesterol 49 MG/DL (40-60) Cholesterol/HDL Ratio 4.0 (3.3-4.4) Amylase Level 139 U/L (25-115) H Lipase 498 U/L (73-393) H Microbiology Date/Time Source Procedure Growth Status 01/15/20 03:00 Rectum Received 01/14/20 23:20 Arm Left Blood Culture - Preliminary NO GROWTH AFTER 24 HOURS Resulted 01/14/20 23:20 Nasopharynx SARS-CoV-2 RdRp Gene Assay - Final Complete 01/14/20 23:15 Arm Left Blood Culture - Preliminary NO GROWTH AFTER 24 HOURS Resulted Objective HEAD AND NECK: no JVD. LUNGS: Clear. CARDIOVASCULAR: regular S1 and S2 with no gallop or murmur. ABDOMEN: Soft. EXTREMITIES: No pitting edema. Pawel Philip MD Jan 16, 2020 13:09
--- NOTE | 2020-01-16 14:32 | Surgery Progress Note ---
Surgery Progress Note Subjective Additional Comments leukocytosis refusing care and non compliant. no n/v Objective Last 24 Hour Vital Signs Date Time Temp Pulse Resp B/P (MAP) Pulse Ox O2 Delivery O2 Flow Rate FiO2 01/16/20 09:29 99 146/95 01/16/20 09:00 Room Air 01/16/20 08:00 96 01/16/20 08:00 97.3 99 14 146/95 (112) 91 01/16/20 07:48 85 16 95 Nasal Cannula 2.0 28 83 16 92 01/16/20 07:43 97 Nasal Cannula 2.0 28 01/16/20 04:00 2.0 01/16/20 04:00 98.3 104 22 125/75 (92) 95 01/16/20 04:00 105 01/16/20 00:00 107 01/16/20 00:00 97.7 112 20 146/96 (113) 98 01/16/20 00:00 2.0 01/16/20 00:00 Nasal Cannula 2.0 01/15/20 20:00 Nasal Cannula 2.0 01/15/20 20:00 103 01/15/20 20:00 97.0 104 20 129/67 (87) 97 01/15/20 20:00 2.0 01/15/20 19:13 97 Nasal Cannula 2.0 28 01/15/20 16:00 98.3 95 17 132/69 (90) 97 01/15/20 16:00 91 01/15/20 16:00 Nasal Cannula 2.0 01/15/20 16:00 2.0 I&O Intake and Output 01/15/20 01/16/20 19:00 07:00 Intake Total 482.5 ml 417.0 ml Output Total 450 ml Balance 32.5 ml 417.0 ml Intake Oral 400 ml 350 ml IV Total 82.5 ml 67.0 ml Output Urine Total 450 ml Cardiovascular: RSR Respiratory: decreased breath sounds Abdomen: non-tender, present bowel sounds Extremities: no edema, no tenderness, no cyanosis Laboratory Tests Test 01/15/20 16:41 01/16/20 03:10 POC Whole Blood Glucose 110 MG/DL (74-106) H White Blood Count 11.9 K/UL (4.8-10.8) #H Red Blood Count 4.18 M/UL (4.20-5.40) L Hemoglobin 11.5 G/DL (12.0-16.0) L Hematocrit 37.7 % (37.0-47.0) Mean Corpuscular Volume 90 FL (80-99) Mean Corpuscular Hemoglobin 27.6 PG (27.0-31.0) Mean Corpuscular Hemoglobin Concent 30.6 G/DL (32.0-36.0) L Red Cell Distribution Width 16.4 % (11.6-14.8) H Platelet Count 272 K/UL (150-450) Mean Platelet Volume 8.4 FL (6.5-10.1) Neutrophils (%) (Auto) 84.9 % (45.0-75.0) H Lymphocytes (%) (Auto) 7.7 % (20.0-45.0) L Monocytes (%) (Auto) 6.9 % (1.0-10.0) Eosinophils (%) (Auto) 0.1 % (0.0-3.0) Basophils (%) (Auto) 0.4 % (0.0-2.0) Erythrocyte Sedimentation Rate 20 MM/HR (0-30) Sodium Level 141 MMOL/L (136-145) Potassium Level 4.3 MMOL/L (3.5-5.1) Chloride Level 106 MMOL/L (98-107) Carbon Dioxide Level 26 MMOL/L (21-32) Anion Gap 9 mmol/L (5-15) Blood Urea Nitrogen 27 mg/dL (7-18) H Creatinine 1.6 MG/DL (0.55-1.30) H Estimat Glomerular Filtration Rate 38.9 mL/min (>60) Glucose Level 88 MG/DL (74-106) Uric Acid 7.1 MG/DL (2.6-7.2) Calcium Level 7.9 MG/DL (8.5-10.1) L Phosphorus Level 3.3 MG/DL (2.5-4.9) Magnesium Level 2.7 MG/DL (1.8-2.4) H Total Bilirubin 0.3 MG/DL (0.2-1.0) Aspartate Amino Transf (AST/SGOT) 45 U/L (15-37) H Alanine Aminotransferase (ALT/SGPT) 61 U/L (12-78) Alkaline Phosphatase 175 U/L (46-116) H Total Creatine Kinase 186 U/L (26-308) Troponin I 0.101 ng/mL (0.000-0.056) C-Reactive Protein, Quantitative < 0.4 mg/dL (0.00-0.90) Total Protein 6.7 G/DL (6.4-8.2) Albumin 2.9 G/DL (3.4-5.0) L Globulin 3.8 g/dL Albumin/Globulin Ratio 0.8 (1.0-2.7) L Triglycerides Level 119 MG/DL (30-150) Cholesterol Level 198 MG/DL (< 200) LDL Cholesterol 114 mg/dL (<100) H HDL Cholesterol 49 MG/DL (40-60) Cholesterol/HDL Ratio 4.0 (3.3-4.4) Amylase Level 139 U/L (25-115) H Lipase 498 U/L (73-393) H Plan Problems: (1) Lactic acid acidosis Assessment & Plan: 69F admitted with lactic acidosis abnormal lft's respiratory insufficiency labs improving dehydrated resuscitation trend labs okay for diet no n/v/f/c respiratory tx (2) Abnormal LFTs Assessment & Plan: mild elevation in LFT's. likely from meds vs dehydration okay for diet US ordered will follow with resc thank you (3) NSTEMI (non-ST elevated myocardial infarction) (4) CAD (coronary artery disease) (5) Diabetes (6) CHF exacerbation (7) COPD (chronic obstructive pulmonary disease) (8) Hypertension (9) Conjunctivitis, left eye (10) Cocaine abuse (11) Homelessness (12) Noncompliance (13) Respiratory failure with hypoxia (14) Hyperglycemia due to type 2 diabetes mellitus (15) Acute exacerbation of CHF (congestive heart failure) (16) COPD with exacerbation (17) Hypertensive cardiomegaly with heart failure Eduardo Amanda Jan 16, 2020 14:32
--- NOTE | 2020-01-16 17:43 | Internal Med Progress Note ---
Subjective Date of Service: Jan 16, 2020 Physician Name EricaAntoine Attending Physician Harpal Keller MD Current Medications Medications (Trade) Dose Ordered Sig/Michael Route PRN Reason Start Time Stop Time Status Last Admin Dose Admin Acetaminophen (Tylenol) 650 mg Q6H PRN ORAL Mild Pain (Pain Scale 1-3) 01/15/20 06:15 02/14/20 06:14 Acetaminophen/ Codeine Phosphate (Tylenol #3) 1 tab Q4H PRN ORAL Moderate-Severe Pain 01/15/20 06:15 01/22/20 06:14 01/16/20 12:44 Albuterol/ Ipratropium (Albuterol/ Ipratropium) 3 ml Q4H PRN HHN Shortness of Breath 01/15/20 06:15 01/20/20 06:14 Albuterol/ Ipratropium (Albuterol/ Ipratropium) 3 ml Q8HRT HHN 01/15/20 07:00 01/20/20 06:59 01/16/20 07:43 Amlodipine Besylate (Norvasc) 5 mg Q12HR ORAL 01/16/20 21:00 02/15/20 20:59 Aspirin (ASA) 81 mg DAILY ORAL 01/16/20 09:00 03/01/20 08:59 01/16/20 09:29 Atorvastatin Calcium (Lipitor) 20 mg BEDTIME ORAL 01/15/20 21:00 04/14/20 20:59 01/15/20 21:09 Clonidine HCl (Catapres Tab) 0.1 mg Q4H PRN ORAL SBP >160 01/15/20 06:15 04/14/20 06:14 Dextrose (Dextrose 50%) 25 ml Q30M PRN IV Hypoglycemia 01/15/20 06:15 04/14/20 06:14 Dextrose (Dextrose 50%) 50 ml Q30M PRN IV Hypoglycemia 01/15/20 06:15 04/14/20 06:14 Docusate Sodium (Colace) 100 mg THREE TIMES A DAY ORAL 01/16/20 13:00 02/15/20 12:59 01/16/20 17:33 Famotidine (Pepcid) 20 mg BID ORAL 01/16/20 11:30 04/15/20 11:29 01/16/20 17:33 Heparin Sodium (Porcine) (Heparin 5000 units/ml) 5,000 units EVERY 8 HOURS SUBQ 01/15/20 14:00 02/29/20 13:59 Insulin Aspart (NovoLOG) BEFORE MEALS AND HS SUBQ 01/15/20 06:30 04/14/20 06:29 Lorazepam (Ativan 2mg/ml 1ml) 0.5 mg Q4H PRN IV For Anxiety 01/15/20 07:15 01/22/20 07:14 Methylprednisolone Sodium Succinate (Solu-MEDROL) 60 mg DAILY IVP 01/16/20 10:00 04/14/20 09:59 Nitroglycerin (Ntg) 0.4 mg Q5M X 3 DOSES PRN SL Prn Chest Pain 01/15/20 07:15 02/14/20 07:14 Ondansetron HCl (Zofran) 4 mg Q4H PRN IVP Nausea & Vomiting 01/15/20 06:15 02/14/20 06:14 Piperacillin Sod/ Tazobactam Sod 3.375 gm/Sodium Chloride 110 ml @ 27.5 mls/hr EVERY 8 HOURS IVPB 01/15/20 14:00 01/20/20 13:59 01/16/20 06:15 Promethazine HCl/ Codeine (Phenergan with Codeine) 5 ml Q6H PRN ORAL cough 01/15/20 07:15 02/14/20 07:14 Temazepam (Restoril) 15 mg HSPRN PRN ORAL Insomnia 01/15/20 07:15 01/22/20 07:14 Theophylline (Justice-Dur) 100 mg EVERY 12 HOURS ORAL 01/15/20 09:00 04/14/20 08:59 01/16/20 09:29 Allergies: Coded Allergies: LITHIUM (Verified Allergy, Unknown, 11/19/19) ROS Limited/Unobtainable: No Constitutional: Reports: no symptoms HEENT: Reports: no symptoms Cardiovascular: Reports: no symptoms Respiratory: Reports: shortness of breath Gastrointestinal/Abdominal: Reports: no symptoms Genitourinary: Reports: no symptoms Neurologic/Psychiatric: Reports: no symptoms Subjective 69 YO F admitted with hypoxemic respiratory failure. Now COPD and CHF exacerbation. Cover for Int [place]-DR Keller Objective Last Vital Signs Date Time Temp Pulse Resp B/P (MAP) Pulse Ox O2 Delivery O2 Flow Rate FiO2 01/16/20 09:29 99 146/95 01/16/20 09:00 Room Air 01/16/20 08:00 97.3 14 91 01/16/20 07:48 2.0 28 Laboratory Tests Test 01/16/20 03:10 White Blood Count 11.9 K/UL (4.8-10.8) #H Red Blood Count 4.18 M/UL (4.20-5.40) L Hemoglobin 11.5 G/DL (12.0-16.0) L Hematocrit 37.7 % (37.0-47.0) Mean Corpuscular Volume 90 FL (80-99) Mean Corpuscular Hemoglobin 27.6 PG (27.0-31.0) Mean Corpuscular Hemoglobin Concent 30.6 G/DL (32.0-36.0) L Red Cell Distribution Width 16.4 % (11.6-14.8) H Platelet Count 272 K/UL (150-450) Mean Platelet Volume 8.4 FL (6.5-10.1) Neutrophils (%) (Auto) 84.9 % (45.0-75.0) H Lymphocytes (%) (Auto) 7.7 % (20.0-45.0) L Monocytes (%) (Auto) 6.9 % (1.0-10.0) Eosinophils (%) (Auto) 0.1 % (0.0-3.0) Basophils (%) (Auto) 0.4 % (0.0-2.0) Erythrocyte Sedimentation Rate 20 MM/HR (0-30) Sodium Level 141 MMOL/L (136-145) Potassium Level 4.3 MMOL/L (3.5-5.1) Chloride Level 106 MMOL/L (98-107) Carbon Dioxide Level 26 MMOL/L (21-32) Anion Gap 9 mmol/L (5-15) Blood Urea Nitrogen 27 mg/dL (7-18) H Creatinine 1.6 MG/DL (0.55-1.30) H Estimat Glomerular Filtration Rate 38.9 mL/min (>60) Glucose Level 88 MG/DL (74-106) Uric Acid 7.1 MG/DL (2.6-7.2) Calcium Level 7.9 MG/DL (8.5-10.1) L Phosphorus Level 3.3 MG/DL (2.5-4.9) Magnesium Level 2.7 MG/DL (1.8-2.4) H Total Bilirubin 0.3 MG/DL (0.2-1.0) Aspartate Amino Transf (AST/SGOT) 45 U/L (15-37) H Alanine Aminotransferase (ALT/SGPT) 61 U/L (12-78) Alkaline Phosphatase 175 U/L (46-116) H Total Creatine Kinase 186 U/L (26-308) Troponin I 0.101 ng/mL (0.000-0.056) C-Reactive Protein, Quantitative < 0.4 mg/dL (0.00-0.90) Total Protein 6.7 G/DL (6.4-8.2) Albumin 2.9 G/DL (3.4-5.0) L Globulin 3.8 g/dL Albumin/Globulin Ratio 0.8 (1.0-2.7) L Triglycerides Level 119 MG/DL (30-150) Cholesterol Level 198 MG/DL (< 200) LDL Cholesterol 114 mg/dL (<100) H HDL Cholesterol 49 MG/DL (40-60) Cholesterol/HDL Ratio 4.0 (3.3-4.4) Amylase Level 139 U/L (25-115) H Lipase 498 U/L (73-393) H Microbiology Date/Time Source Procedure Growth Status 01/15/20 03:00 Rectum Received 01/14/20 23:20 Arm Left Blood Culture - Preliminary NO GROWTH AFTER 24 HOURS Resulted 01/14/20 23:20 Nasopharynx SARS-CoV-2 RdRp Gene Assay - Final Complete 01/14/20 23:15 Arm Left Blood Culture - Preliminary NO GROWTH AFTER 24 HOURS Resulted Intake and Output 01/15/20 01/16/20 19:00 07:00 Intake Total 482.5 ml 417.0 ml Output Total 450 ml Balance 32.5 ml 417.0 ml Intake Oral 400 ml 350 ml IV Total 82.5 ml 67.0 ml Output Urine Total 450 ml Objective PHYSICAL EXAMINATION: GENERAL: Patient is awake, responsive, uncooperative. HEAD AND NECK: Pupils are equal and reactive to light. Extraocular movements intact. NECK: Supple. No JVD. LUNGS: Good air. Patient has expiratory wheezes. Decreased air in bases. No rhonchi. HEART: S1, S2. Distant heart sounds. No murmur or gallops. ABDOMEN: Soft, nondistended, nontender. Positive bowel sounds. EXTREMITIES: No cyanosis, clubbing, or edema. NEUROLOGIC: Cranial nerves II through XII grossly intact. Patient is moving all extremities. Gait was not assessed due to patient's status. RECTAL: Refused and deferred. GENITOURINARY: Refused and deferred. PSYCHIATRIC: Mood and affect is anxious. Assessment/Plan Assessment/Plan ASSESSMENT: 1. Acute hypoxemic respiratory failure, most likely secondary to acute CHF exacerbation in conjunction with COPD exacerbation. 2. Lactic acidosis. 3. Abnormal liver function. 4. Coronary artery disease with prior history of myocardial infarction. 5. Elevated troponin, most likely secondary to non-ST elevation [place] as a result of demand ischemia. 6. Diabetes type 2, uncontrolled. 7. Acute on chronic congestive heart failure. 8. Acute COPD exacerbation. 9. Hypertension. 10. Left eye conjunctivitis. 11. History of cocaine abuse. 12. Homeless. 13. Noncompliance with medication. 14. Hyperglycemia. 15. Possible underlying psychiatric disorder. PLAN: 1. Admit patient to Med/surg. We will follow up with the laboratory 2. antibiotic = Zosyn. 3. Albuterol Nebulizer treatment PRN 4. Solu-Medrol 60 mg IV q.6. 5. Dr. Singh,=Pulmonary Critical Care consultation 6. Dr. Amanda = Surgery 7. Dr. Philip = Cardiology/ Electrophysiology 8. Code status is Full Code. 9. DVT prophylaxis =heparin subcutaneous. Antoine Maldonado MD Jan 16, 2020 17:43
[2020-01-16 20:00] VITALS: BP 152/92
[2020-01-16] MEDS: Atorvastatin 20mg tab ORAL SCH (21:00)
[2020-01-17] VITALS: BP 170/100
[2020-01-17 04:00] VITALS: BP 145/79
[2020-01-17] MEDS: Heparin 5000 units/ml inj SUBQ SCH ×3 (06:00→23:11)
[2020-01-17] MEDS: Zoysn 3.37gm in NS 100ML IVPB SCH ×2 (06:00→15:44)
[2020-01-17] MEDS: NovoLOG Insulin Flexpen SUBQ SCH ×4 (06:25→21:00)
[2020-01-17] MEDS: Albuterol/Ipratropium 3ml neb HHN SCH ×3 (06:33→23:00)
[2020-01-17 06:39] LABS: BASOPHILS % (AUTO) 0.5 % (0.0-2.0); EOSINOPHILS % (AUTO) 0.1 % (0.0-3.0); HEMATOCRIT 35.3 % (37.0-47.0); HEMOGLOBIN 10.8 G/DL (12.0-16.0); LYMPHOCYTES % (AUTO) 20.5 % (20.0-45.0); MEAN CORPUSCULAR VOLUME 90 FL (80-99); MONOCYTES % (AUTO) 6.3 % (1.0-10.0); NEUTROPHILS % (AUTO) 72.6 % (45.0-75.0); PLATELET COUNT 273 K/UL (150-450); RED BLOOD COUNT 3.93 M/UL (4.20-5.40); RED CELL DISTRIBUTION WIDTH 16.1 % (11.6-14.8); WHITE BLOOD COUNT 10.9 K/UL (4.8-10.8)
[2020-01-17 07:15] LABS: CREATINE KINASE 99 U/L (26-308); GAMMA GLUTAMYL TRANSPEPTIDASE 331 U/L (5-85)
[2020-01-17 07:18] LABS: ALANINE AMINOTRANSFERASE 49 U/L (12-78); ALBUMIN 2.6 G/DL (3.4-5.0); ALBUMIN/GLOBULIN RATIO 0.7 (1.0-2.7); ALKALINE PHOSPHATASE 140 U/L (46-116); ANION GAP 8 mmol/L (5-15); ASPARTATE AMINO TRANSFERASE 27 U/L (15-37); BILIRUBIN,TOTAL 0.2 MG/DL (0.2-1.0); BLOOD UREA NITROGEN 36 mg/dL (7-18); CALCIUM 7.9 MG/DL (8.5-10.1); CARBON DIOXIDE 25 MMOL/L (21-32); CHLORIDE 109 MMOL/L (98-107); CREATININE 1.4 MG/DL (0.55-1.30); PHOSPHORUS 3.8 MG/DL (2.5-4.9); POTASSIUM 4.1 MMOL/L (3.5-5.1); SODIUM 142 MMOL/L (136-145)
[2020-01-17 08:00] VITALS: BP 148/83
[2020-01-17] MEDS: Aspirin Baby 81mg ORAL SCH (08:46)
[2020-01-17] MEDS: Theophylline ER 100mg ORAL SCH ×2 (08:46→20:15)
[2020-01-17] MEDS: Docusate 100mg cap ORAL SCH ×3 (08:46→17:15)
[2020-01-17] MEDS: Solu-MEDROL 125mg Inj IVP SCH (09:32)
[2020-01-17] MEDS ORDERED: Ertapenem (INVanz) 1gm Inj IM ONE (10:45)
--- NOTE | 2020-01-17 14:41 | Nephrology Progress Note ---
Assessment/Plan Problem List: (1) DELLA (acute kidney injury) (2) COPD with exacerbation (3) Cocaine abuse (4) Hypertension (5) CHF exacerbation (6) Elevated troponin I level (7) Elevated lipase (8) Abnormal LFTs Assessment Acute renal failure most likely superimposed on chronic kidney failure Presented with respiratory failure and hypoxia [id number] myocardial infarction. Exacerbation of CHF, echocardiogram shows ejection fraction of 45% Hypertensive cardiomyopathy Cocaine abuse Diabetes type 1 COPD/exacerbation Smoker Noncompliant Homelessness Elevated lipase level Plan Optimize cardiac and pulmonary status Monitor renal parameters and electrolytes Avoid nephrotoxic's Per orders Subjective ROS Limited/Unobtainable: No Constitutional: Reports: malaise, other - Occasional cough Objective Objective Last 24 Hour Vital Signs Date Time Temp Pulse Resp B/P (MAP) Pulse Ox O2 Delivery O2 Flow Rate FiO2 01/17/20 09:00 Room Air 01/17/20 08:46 91 148/83 01/17/20 08:00 97.8 91 18 148/83 (104) 99 01/17/20 06:34 94 Room Air 21 01/17/20 04:00 97.9 87 19 145/79 (101) 100 01/17/20 00:26 98.5 01/17/20 00:00 98.9 89 18 170/100 (123) 99 01/16/20 23:37 170/100 01/16/20 21:00 Room Air 01/16/20 20:00 98.5 96 18 152/92 (112) 97 01/16/20 19:36 93 Room Air 21 Intake and Output 01/16/20 01/17/20 19:00 07:00 Intake Total 250 ml 650 ml Balance 250 ml 650 ml Intake Oral 250 ml 650 ml # Voids 3 Current Medications Medications (Trade) Dose Ordered Sig/Michael Route PRN Reason Start Time Stop Time Status Last Admin Dose Admin Acetaminophen (Tylenol) 650 mg Q6H PRN ORAL Mild Pain (Pain Scale 1-3) 01/15/20 06:15 02/14/20 06:14 Acetaminophen/ Codeine Phosphate (Tylenol #3) 1 tab Q4H PRN ORAL Moderate-Severe Pain 01/15/20 06:15 01/22/20 06:14 01/16/20 23:37 Albuterol/ Ipratropium (Albuterol/ Ipratropium) 3 ml Q4H PRN HHN Shortness of Breath 01/15/20 06:15 01/20/20 06:14 Albuterol/ Ipratropium (Albuterol/ Ipratropium) 3 ml Q8HRT HHN 01/15/20 07:00 01/20/20 06:59 01/16/20 07:43 Amlodipine Besylate (Norvasc) 5 mg Q12HR ORAL 01/16/20 21:00 02/15/20 20:59 01/17/20 08:46 Aspirin (ASA) 81 mg DAILY ORAL 01/16/20 09:00 03/01/20 08:59 01/17/20 08:46 Atorvastatin Calcium (Lipitor) 20 mg BEDTIME ORAL 01/15/20 21:00 04/14/20 20:59 01/15/20 21:09 Clonidine HCl (Catapres Tab) 0.1 mg Q4H PRN ORAL SBP >160 01/15/20 06:15 04/14/20 06:14 01/16/20 23:37 Dextrose (Dextrose 50%) 25 ml Q30M PRN IV Hypoglycemia 01/15/20 06:15 04/14/20 06:14 Dextrose (Dextrose 50%) 50 ml Q30M PRN IV Hypoglycemia 01/15/20 06:15 04/14/20 06:14 Docusate Sodium (Colace) 100 mg THREE TIMES A DAY ORAL 01/16/20 13:00 02/15/20 12:59 01/17/20 08:46 Famotidine (Pepcid) 20 mg BID ORAL 01/16/20 11:30 04/15/20 11:29 01/17/20 08:46 Heparin Sodium (Porcine) (Heparin 5000 units/ml) 5,000 units EVERY 8 HOURS SUBQ 01/15/20 14:00 02/29/20 13:59 Insulin Aspart (NovoLOG) BEFORE MEALS AND HS SUBQ 01/15/20 06:30 04/14/20 06:29 Lorazepam (Ativan 2mg/ml 1ml) 0.5 mg Q4H PRN IV For Anxiety 01/15/20 07:15 01/22/20 07:14 Methylprednisolone Sodium Succinate (Solu-MEDROL) 60 mg DAILY IVP 01/16/20 10:00 2/11/21 09:59 01/17/20 09:32 Nitroglycerin (Ntg) 0.4 mg Q5M X 3 DOSES PRN SL Prn Chest Pain 01/15/20 07:15 02/14/20 07:14 Ondansetron HCl (Zofran) 4 mg Q4H PRN IVP Nausea & Vomiting 01/15/20 06:15 02/14/20 06:14 Piperacillin Sod/ Tazobactam Sod 3.375 gm/Sodium Chloride 110 ml @ 27.5 mls/hr EVERY 8 HOURS IVPB 01/15/20 14:00 01/20/20 13:59 01/16/20 06:15 Promethazine HCl/ Codeine (Phenergan with Codeine) 5 ml Q6H PRN ORAL cough 01/15/20 07:15 02/14/20 07:14 Temazepam (Restoril) 15 mg HSPRN PRN ORAL Insomnia 01/15/20 07:15 01/22/20 07:14 Theophylline (Justice-Dur) 100 mg EVERY 12 HOURS ORAL 01/15/20 09:00 04/14/20 08:59 01/17/20 08:46 Laboratory Tests 01/17/20 06:00: White Blood Count 10.9H, Red Blood Count 3.93L, Hemoglobin 10.8L, Hematocrit 35.3L, Mean Corpuscular Volume 90, Mean Corpuscular Hemoglobin 27.5, Mean Corpuscular Hemoglobin Concent 30.6L, Red Cell Distribution Width 16.1H, Platelet Count 273, Mean Platelet Volume 7.7, Neutrophils (%) (Auto) 72.6, Lymphocytes (%) (Auto) 20.5, Monocytes (%) (Auto) 6.3, Eosinophils (%) (Auto) 0.1, Basophils (%) (Auto) 0.5, Erythrocyte Sedimentation Rate 15, Sodium Level 142, Potassium Level 4.1, Chloride Level 109H, Carbon Dioxide Level 25, Anion Gap 8, Blood Urea Nitrogen 36H, Creatinine 1.4H, Estimat Glomerular Filtration Rate 45.3, Glucose Level 97, Uric Acid 6.5, Calcium Level 7.9L, Phosphorus Level 3.8, Magnesium Level 2.4, Total Bilirubin 0.2, Gamma Glutamyl Transpeptidase 331H, Aspartate Amino Transf (AST/SGOT) 27, Alanine Aminotransferase (ALT/SGPT) 49, Alkaline Phosphatase 140H, Total Creatine Kinase 99, C-Reactive Protein, Quantitative < 0.4, Pro-B-Type Natriuretic Peptide 71820Q, Total Protein 6.1L, Albumin 2.6L, Globulin 3.5, Albumin/Globulin Ratio 0.7L, Lipase 594H, Thyroid Stimulating Hormone (TSH) 0.203L 01/17/20 11:30: POC Whole Blood Glucose 108H Height (Feet): 5 Height (Inches): 6.00 Weight (Pounds): 158 General Appearance: no apparent distress Cardiovascular: tachycardia Respiratory/Chest: decreased breath sounds, rhonchi - bilaterally Abdomen: soft, distended Ignacio Callahan MD Jan 17, 2020 14:41
--- NOTE | 2020-01-17 14:47 | Internal Med Progress Note ---
Subjective Date of Service: Jan 17, 2020 Physician Name EricaAntoine Attending Physician Harpal Keller MD Current Medications Medications (Trade) Dose Ordered Sig/Michael Route PRN Reason Start Time Stop Time Status Last Admin Dose Admin Acetaminophen (Tylenol) 650 mg Q6H PRN ORAL Mild Pain (Pain Scale 1-3) 01/15/20 06:15 02/14/20 06:14 Acetaminophen/ Codeine Phosphate (Tylenol #3) 1 tab Q4H PRN ORAL Moderate-Severe Pain 01/15/20 06:15 01/22/20 06:14 01/16/20 23:37 Albuterol/ Ipratropium (Albuterol/ Ipratropium) 3 ml Q4H PRN HHN Shortness of Breath 01/15/20 06:15 01/20/20 06:14 Albuterol/ Ipratropium (Albuterol/ Ipratropium) 3 ml Q8HRT HHN 01/15/20 07:00 01/20/20 06:59 01/16/20 07:43 Amlodipine Besylate (Norvasc) 5 mg Q12HR ORAL 01/16/20 21:00 02/15/20 20:59 01/17/20 08:46 Aspirin (ASA) 81 mg DAILY ORAL 01/16/20 09:00 03/01/20 08:59 01/17/20 08:46 Atorvastatin Calcium (Lipitor) 20 mg BEDTIME ORAL 01/15/20 21:00 04/14/20 20:59 01/15/20 21:09 Clonidine HCl (Catapres Tab) 0.1 mg Q4H PRN ORAL SBP >160 01/15/20 06:15 04/14/20 06:14 01/16/20 23:37 Dextrose (Dextrose 50%) 25 ml Q30M PRN IV Hypoglycemia 01/15/20 06:15 04/14/20 06:14 Dextrose (Dextrose 50%) 50 ml Q30M PRN IV Hypoglycemia 01/15/20 06:15 04/14/20 06:14 Docusate Sodium (Colace) 100 mg THREE TIMES A DAY ORAL 01/16/20 13:00 02/15/20 12:59 01/17/20 08:46 Famotidine (Pepcid) 20 mg BID ORAL 01/16/20 11:30 04/15/20 11:29 01/17/20 08:46 Heparin Sodium (Porcine) (Heparin 5000 units/ml) 5,000 units EVERY 8 HOURS SUBQ 01/15/20 14:00 02/29/20 13:59 Insulin Aspart (NovoLOG) BEFORE MEALS AND HS SUBQ 01/15/20 06:30 04/14/20 06:29 Lorazepam (Ativan 2mg/ml 1ml) 0.5 mg Q4H PRN IV For Anxiety 01/15/20 07:15 01/22/20 07:14 Methylprednisolone Sodium Succinate (Solu-MEDROL) 60 mg DAILY IVP 01/16/20 10:00 04/14/20 09:59 01/17/20 09:32 Nitroglycerin (Ntg) 0.4 mg Q5M X 3 DOSES PRN SL Prn Chest Pain 01/15/20 07:15 02/14/20 07:14 Ondansetron HCl (Zofran) 4 mg Q4H PRN IVP Nausea & Vomiting 01/15/20 06:15 02/14/20 06:14 Piperacillin Sod/ Tazobactam Sod 3.375 gm/Sodium Chloride 110 ml @ 27.5 mls/hr EVERY 8 HOURS IVPB 01/15/20 14:00 01/20/20 13:59 01/16/20 06:15 Promethazine HCl/ Codeine (Phenergan with Codeine) 5 ml Q6H PRN ORAL cough 01/15/20 07:15 02/14/20 07:14 Temazepam (Restoril) 15 mg HSPRN PRN ORAL Insomnia 01/15/20 07:15 01/22/20 07:14 Theophylline (Justice-Dur) 100 mg EVERY 12 HOURS ORAL 01/15/20 09:00 04/14/20 08:59 01/17/20 08:46 Allergies: Coded Allergies: LITHIUM (Verified Allergy, Unknown, 11/19/19) ROS Limited/Unobtainable: No Constitutional: Reports: no symptoms HEENT: Reports: no symptoms Cardiovascular: Reports: no symptoms Respiratory: Reports: shortness of breath Gastrointestinal/Abdominal: Reports: no symptoms Genitourinary: Reports: no symptoms Neurologic/Psychiatric: Reports: no symptoms Subjective 69 YO F admitted with hypoxemic respiratory failure. Now COPD and CHF exacerbation. Cover for Int Med-DR Keller Objective Last Vital Signs Date Time Temp Pulse Resp B/P (MAP) Pulse Ox O2 Delivery O2 Flow Rate FiO2 01/17/20 09:00 Room Air 01/17/20 08:46 91 148/83 01/17/20 08:00 97.8 18 99 01/17/20 06:34 21 01/16/20 07:48 2.0 Laboratory Tests Test 01/17/20 06:00 01/17/20 11:30 White Blood Count 10.9 K/UL (4.8-10.8) H Red Blood Count 3.93 M/UL (4.20-5.40) L Hemoglobin 10.8 G/DL (12.0-16.0) L Hematocrit 35.3 % (37.0-47.0) L Mean Corpuscular Volume 90 FL (80-99) Mean Corpuscular Hemoglobin 27.5 PG (27.0-31.0) Mean Corpuscular Hemoglobin Concent 30.6 G/DL (32.0-36.0) L Red Cell Distribution Width 16.1 % (11.6-14.8) H Platelet Count 273 K/UL (150-450) Mean Platelet Volume 7.7 FL (6.5-10.1) Neutrophils (%) (Auto) 72.6 % (45.0-75.0) Lymphocytes (%) (Auto) 20.5 % (20.0-45.0) Monocytes (%) (Auto) 6.3 % (1.0-10.0) Eosinophils (%) (Auto) 0.1 % (0.0-3.0) Basophils (%) (Auto) 0.5 % (0.0-2.0) Erythrocyte Sedimentation Rate 15 MM/HR (0-30) Sodium Level 142 MMOL/L (136-145) Potassium Level 4.1 MMOL/L (3.5-5.1) Chloride Level 109 MMOL/L (98-107) H Carbon Dioxide Level 25 MMOL/L (21-32) Anion Gap 8 mmol/L (5-15) Blood Urea Nitrogen 36 mg/dL (7-18) H Creatinine 1.4 MG/DL (0.55-1.30) H Estimat Glomerular Filtration Rate 45.3 mL/min (>60) Glucose Level 97 MG/DL (74-106) Uric Acid 6.5 MG/DL (2.6-7.2) Calcium Level 7.9 MG/DL (8.5-10.1) L Phosphorus Level 3.8 MG/DL (2.5-4.9) Magnesium Level 2.4 MG/DL (1.8-2.4) Total Bilirubin 0.2 MG/DL (0.2-1.0) Gamma Glutamyl Transpeptidase 331 U/L (5-85) H Aspartate Amino Transf (AST/SGOT) 27 U/L (15-37) Alanine Aminotransferase (ALT/SGPT) 49 U/L (12-78) Alkaline Phosphatase 140 U/L (46-116) H Total Creatine Kinase 99 U/L (26-308) C-Reactive Protein, Quantitative < 0.4 mg/dL (0.00-0.90) Pro-B-Type Natriuretic Peptide 59723 pg/mL (0-125) H Total Protein 6.1 G/DL (6.4-8.2) L Albumin 2.6 G/DL (3.4-5.0) L Globulin 3.5 g/dL Albumin/Globulin Ratio 0.7 (1.0-2.7) L Lipase 594 U/L (73-393) H Thyroid Stimulating Hormone (TSH) 0.203 uiU/mL (0.358-3.740) POC Whole Blood Glucose 108 MG/DL (74-106) H Microbiology Date/Time Source Procedure Growth Status 01/15/20 03:00 Rectum - Final NO CARBAPENEM-RESISTANT ENTEROBACTERI... Complete 01/15/20 03:00 Rectum VRE Culture - Final NO VANCOMYCIN RESISTANT ENTEROCOCCUS ... Complete 01/15/20 03:00 Nasal Nares MRSA Culture - Final NO METHICILLIN RESISTANT STAPH AUREUS... Complete 01/14/20 23:20 Arm Left Blood Culture - Preliminary NO GROWTH AFTER 24 HOURS Resulted 01/14/20 23:20 Nasopharynx SARS-CoV-2 RdRp Gene Assay - Final Complete 01/14/20 23:15 Arm Left Blood Culture - Preliminary NO GROWTH AFTER 24 HOURS Resulted Intake and Output 01/16/20 01/17/20 19:00 07:00 Intake Total 250 ml 650 ml Balance 250 ml 650 ml Intake Oral 250 ml 650 ml # Voids 3 Objective PHYSICAL EXAMINATION: GENERAL: Patient is awake, responsive, uncooperative. HEAD AND NECK: Pupils are equal and reactive to light. Extraocular movements intact. NECK: Supple. No JVD. LUNGS: Good air. Patient has expiratory wheezes. Decreased air in bases. No rhonchi. HEART: S1, S2. Distant heart sounds. No murmur or gallops. ABDOMEN: Soft, nondistended, nontender. Positive bowel sounds. EXTREMITIES: No cyanosis, clubbing, or edema. NEUROLOGIC: Cranial nerves II through XII grossly intact. Patient is moving all extremities. Gait was not assessed due to patient's status. RECTAL: Refused and deferred. GENITOURINARY: Refused and deferred. PSYCHIATRIC: Mood and affect is anxious. Assessment/Plan Assessment/Plan ASSESSMENT: 1. Acute hypoxemic respiratory failure, most likely secondary to acute CHF exacerbation in conjunction with COPD exacerbation. 2. Lactic acidosis. 3. Abnormal liver function. 4. Coronary artery disease with prior history of myocardial infarction. 5. Elevated troponin, most likely secondary to non-ST elevation [place] as a result of demand ischemia. 6. Diabetes type 2, uncontrolled. 7. Acute on chronic congestive heart failure. 8. Acute COPD exacerbation. 9. Hypertension. 10. Left eye conjunctivitis. 11. History of cocaine abuse. 12. Homeless. 13. Noncompliance with medication. 14. Hyperglycemia. 15. Possible underlying psychiatric disorder. PLAN: 1. Admit patient to Med/surg. We will follow up with the laboratory 2. antibiotic = Zosyn and ertapenem 3. Albuterol Nebulizer treatment PRN 4. Solu-Medrol 60 mg IV q.6. 5. Dr. Singh,=Pulmonary Critical Care consultation 6. Dr. Amanda = Surgery 7. Dr. Philip = Cardiology/ Electrophysiology 8. Code status is Full Code. 9. DVT prophylaxis =heparin subcutaneous. Antoine Maldonado MD Jan 17, 2020 14:47
[2020-01-17] MEDS: Tylenol #3 tab (300mg/30mg) ORAL PRN ×2 (15:16→20:16)
[2020-01-17] MEDS ORDERED: NS 275ml ONE (15:16)
--- NOTE | 2020-01-17 15:30 | Cardiology Report ---
APPROVED REPORT EXAM: Two-dimensional and M-mode echocardiogram with Doppler and color Doppler. INDICATION Congestive Heart Failure M-Mode DIMENSIONS IVSd1.0 (0.7-1.1cm)Left Atrium (MM)4.4 (1.6-4.0cm) LVDd5.0 (3.5-5.6cm)Aortic Root2.8 (2.0-3.7cm) PWd1.2 (0.7-1.1cm)Aortic Cusp Exc.1.5 (1.5-2.0cm) IVSs2.0 cmEPSS1.3 (>1.0cm) LVDs2.7 (2.5-4.0cm) PWs1.9 cm <Conclusion> Technically difficult study due to patient position. Study quality precludes accurate assessment of regional wall motion. Global left ventricular hypokinesis. Normal left ventricular chamber size. Left ventricular ejection fraction estimated to be 45-50 %. No evidence of left ventricular hypertrophy. No evidence of pericardial effusion. Mild left atrial enlargement. Right cardiac chamber sizes are within normal limits. Focal aortic valve sclerosis with adequate cusp excursion. Thickened mitral valve leaflets with normal excursion. Mitral annulus and aortic root calcification. Pulmonic valve not well visualized. Normal tricuspid valve structure. IVC is normal in size with physiological collapse. A color flow and spectral Doppler study was performed and revealed: No aortic regurgitation. Mild mitral regurgitation. Mitral diastolic velocities suggest mild left ventricular diastolic dysfunction (Grade I). No tricuspid regurgitation.
[2020-01-17 16:00] VITALS: BP 133/79
--- NOTE | 2020-01-17 16:14 | Cardiology Report ---
APPROVED REPORT EKG Measurement Heart [id number] <Conclusion> Poor data quality, interpretation may be adversely affected Sinus tachycardia Left ventricular hypertrophy with repolarization abnormality Abnormal ECG
--- NOTE | 2020-01-17 17:17 | Surgery Progress Note ---
Surgery Progress Note Subjective Symptoms: improved, tolerating diet, passing flatus Objective Last 24 Hour Vital Signs Date Time Temp Pulse Resp B/P (MAP) Pulse Ox O2 Delivery O2 Flow Rate FiO2 01/17/20 16:00 97.5 85 18 133/79 (97) 98 01/17/20 15:46 97.8 01/17/20 09:00 Room Air 01/17/20 08:46 91 148/83 01/17/20 08:00 97.8 91 18 148/83 (104) 99 01/17/20 06:34 94 Room Air 21 01/17/20 04:00 97.9 87 19 145/79 (101) 100 01/17/20 00:26 98.5 01/17/20 00:00 98.9 89 18 170/100 (123) 99 01/16/20 23:37 170/100 01/16/20 21:00 Room Air 01/16/20 20:00 98.5 96 18 152/92 (112) 97 01/16/20 19:36 93 Room Air 21 I&O Intake and Output 01/16/20 01/17/20 19:00 07:00 Intake Total 250 ml 650 ml Balance 250 ml 650 ml Intake Oral 250 ml 650 ml # Voids 3 Dressing: saturated Cardiovascular: RSR Respiratory: decreased breath sounds Abdomen: non-tender, present bowel sounds Extremities: no tenderness, no cyanosis Laboratory Tests Test 01/17/20 06:00 01/17/20 11:30 01/17/20 16:41 White Blood Count 10.9 K/UL (4.8-10.8) H Red Blood Count 3.93 M/UL (4.20-5.40) L Hemoglobin 10.8 G/DL (12.0-16.0) L Hematocrit 35.3 % (37.0-47.0) L Mean Corpuscular Volume 90 FL (80-99) Mean Corpuscular Hemoglobin 27.5 PG (27.0-31.0) Mean Corpuscular Hemoglobin Concent 30.6 G/DL (32.0-36.0) L Red Cell Distribution Width 16.1 % (11.6-14.8) H Platelet Count 273 K/UL (150-450) Mean Platelet Volume 7.7 FL (6.5-10.1) Neutrophils (%) (Auto) 72.6 % (45.0-75.0) Lymphocytes (%) (Auto) 20.5 % (20.0-45.0) Monocytes (%) (Auto) 6.3 % (1.0-10.0) Eosinophils (%) (Auto) 0.1 % (0.0-3.0) Basophils (%) (Auto) 0.5 % (0.0-2.0) Erythrocyte Sedimentation Rate 15 MM/HR (0-30) Sodium Level 142 MMOL/L (136-145) Potassium Level 4.1 MMOL/L (3.5-5.1) Chloride Level 109 MMOL/L (98-107) H Carbon Dioxide Level 25 MMOL/L (21-32) Anion Gap 8 mmol/L (5-15) Blood Urea Nitrogen 36 mg/dL (7-18) H Creatinine 1.4 MG/DL (0.55-1.30) H Estimat Glomerular Filtration Rate 45.3 mL/min (>60) Glucose Level 97 MG/DL (74-106) Uric Acid 6.5 MG/DL (2.6-7.2) Calcium Level 7.9 MG/DL (8.5-10.1) L Phosphorus Level 3.8 MG/DL (2.5-4.9) Magnesium Level 2.4 MG/DL (1.8-2.4) Total Bilirubin 0.2 MG/DL (0.2-1.0) Gamma Glutamyl Transpeptidase 331 U/L (5-85) H Aspartate Amino Transf (AST/SGOT) 27 U/L (15-37) Alanine Aminotransferase (ALT/SGPT) 49 U/L (12-78) Alkaline Phosphatase 140 U/L (46-116) H Total Creatine Kinase 99 U/L (26-308) C-Reactive Protein, Quantitative < 0.4 mg/dL (0.00-0.90) Pro-B-Type Natriuretic Peptide 58869 pg/mL (0-125) H Total Protein 6.1 G/DL (6.4-8.2) L Albumin 2.6 G/DL (3.4-5.0) L Globulin 3.5 g/dL Albumin/Globulin Ratio 0.7 (1.0-2.7) L Lipase 594 U/L (73-393) H Thyroid Stimulating Hormone (TSH) 0.203 uiU/mL (0.358-3.740) POC Whole Blood Glucose 108 MG/DL (74-106) H 121 MG/DL (74-106) H Plan Problems: (1) Lactic acid acidosis Assessment & Plan: 69F admitted with lactic acidosis abnormal lft's respiratory insufficiency labs improving dehydrated resuscitation trend labs okay for diet no n/v/f/c respiratory tx (2) Abnormal LFTs Assessment & Plan: mild elevation in LFT's. likely from meds vs dehydration okay for diet US ordered will follow with resc thank you (3) NSTEMI (non-ST elevated myocardial infarction) (4) CAD (coronary artery disease) (5) Diabetes (6) CHF exacerbation (7) COPD (chronic obstructive pulmonary disease) (8) Hypertension (9) Conjunctivitis, left eye (10) Cocaine abuse (11) Homelessness (12) Noncompliance (13) Respiratory failure with hypoxia (14) Hyperglycemia due to type 2 diabetes mellitus (15) Acute exacerbation of CHF (congestive heart failure) (16) COPD with exacerbation (17) Hypertensive cardiomegaly with heart failure Eduardo Amanda Jan 17, 2020 17:17
--- NOTE | 2020-01-17 17:23 | Cardiac Electrophysiology PN ---
Assessment/Plan Assessment/Plan 1. [id number] myocardial infarction. Initial troponin was negative. The second troponin is 0.215. The patient also has history of known coronary artery disease prior to the stent placement in 2009. Refused ECG and Echo showed EF 45% Avoid beta-emery as the patient has severe wheezing and asthma, but continue the patient on aspirin and statin. 2. Six beats of nonsustained ventricular tachycardia, could be due to myocardial infarction. EF 45% 3. Severe COPD and wheezing, on IV antibiotic and Solu-Medrol. 4. Hypertension, on Norvasc 5 mg daily. 5. Diabetes, on insulin. 6. Noncompliant DW RN Subjective Subjective 6 beats of VT and NQMI and hx of stent in 2009 Refused meds and tests. Transferred to off tele bed. Objective Last 24 Hour Vital Signs Date Time Temp Pulse Resp B/P (MAP) Pulse Ox O2 Delivery O2 Flow Rate FiO2 01/17/20 16:00 97.5 85 18 133/79 (97) 98 01/17/20 15:46 97.8 01/17/20 09:00 Room Air 01/17/20 08:46 91 148/83 01/17/20 08:00 97.8 91 18 148/83 (104) 99 01/17/20 06:34 94 Room Air 21 01/17/20 04:00 97.9 87 19 145/79 (101) 100 01/17/20 00:26 98.5 01/17/20 00:00 98.9 89 18 170/100 (123) 99 01/16/20 23:37 170/100 01/16/20 21:00 Room Air 01/16/20 20:00 98.5 96 18 152/92 (112) 97 01/16/20 19:36 93 Room Air 21 Intake and Output 01/16/20 01/17/20 19:00 07:00 Intake Total 250 ml 650 ml Balance 250 ml 650 ml Intake Oral 250 ml 650 ml # Voids 3 Laboratory Tests Test 01/17/20 06:00 01/17/20 11:30 01/17/20 16:41 White Blood Count 10.9 K/UL (4.8-10.8) H Red Blood Count 3.93 M/UL (4.20-5.40) L Hemoglobin 10.8 G/DL (12.0-16.0) L Hematocrit 35.3 % (37.0-47.0) L Mean Corpuscular Volume 90 FL (80-99) Mean Corpuscular Hemoglobin 27.5 PG (27.0-31.0) Mean Corpuscular Hemoglobin Concent 30.6 G/DL (32.0-36.0) L Red Cell Distribution Width 16.1 % (11.6-14.8) H Platelet Count 273 K/UL (150-450) Mean Platelet Volume 7.7 FL (6.5-10.1) Neutrophils (%) (Auto) 72.6 % (45.0-75.0) Lymphocytes (%) (Auto) 20.5 % (20.0-45.0) Monocytes (%) (Auto) 6.3 % (1.0-10.0) Eosinophils (%) (Auto) 0.1 % (0.0-3.0) Basophils (%) (Auto) 0.5 % (0.0-2.0) Erythrocyte Sedimentation Rate 15 MM/HR (0-30) Sodium Level 142 MMOL/L (136-145) Potassium Level 4.1 MMOL/L (3.5-5.1) Chloride Level 109 MMOL/L (98-107) H Carbon Dioxide Level 25 MMOL/L (21-32) Anion Gap 8 mmol/L (5-15) Blood Urea Nitrogen 36 mg/dL (7-18) H Creatinine 1.4 MG/DL (0.55-1.30) H Estimat Glomerular Filtration Rate 45.3 mL/min (>60) Glucose Level 97 MG/DL (74-106) Uric Acid 6.5 MG/DL (2.6-7.2) Calcium Level 7.9 MG/DL (8.5-10.1) L Phosphorus Level 3.8 MG/DL (2.5-4.9) Magnesium Level 2.4 MG/DL (1.8-2.4) Total Bilirubin 0.2 MG/DL (0.2-1.0) Gamma Glutamyl Transpeptidase 331 U/L (5-85) H Aspartate Amino Transf (AST/SGOT) 27 U/L (15-37) Alanine Aminotransferase (ALT/SGPT) 49 U/L (12-78) Alkaline Phosphatase 140 U/L (46-116) H Total Creatine Kinase 99 U/L (26-308) C-Reactive Protein, Quantitative < 0.4 mg/dL (0.00-0.90) Pro-B-Type Natriuretic Peptide 57201 pg/mL (0-125) H Total Protein 6.1 G/DL (6.4-8.2) L Albumin 2.6 G/DL (3.4-5.0) L Globulin 3.5 g/dL Albumin/Globulin Ratio 0.7 (1.0-2.7) L Lipase 594 U/L (73-393) H Thyroid Stimulating Hormone (TSH) 0.203 uiU/mL (0.358-3.740) POC Whole Blood Glucose 108 MG/DL (74-106) H 121 MG/DL (74-106) H Microbiology Date/Time Source Procedure Growth Status 01/15/20 03:00 Rectum - Final NO CARBAPENEM-RESISTANT ENTEROBACTERI... Complete 01/15/20 03:00 Rectum VRE Culture - Final NO VANCOMYCIN RESISTANT ENTEROCOCCUS ... Complete 01/15/20 03:00 Nasal Nares MRSA Culture - Final NO METHICILLIN RESISTANT STAPH AUREUS... Complete 01/14/20 23:20 Arm Left Blood Culture - Preliminary NO GROWTH AFTER 24 HOURS Resulted 01/14/20 23:20 Nasopharynx SARS-CoV-2 RdRp Gene Assay - Final Complete 01/14/20 23:15 Arm Left Blood Culture - Preliminary NO GROWTH AFTER 24 HOURS Resulted Objective HEAD AND NECK: no JVD. LUNGS: Clear. CARDIOVASCULAR: regular S1 and S2 with no gallop or murmur. ABDOMEN: Soft. EXTREMITIES: No pitting edema. Pawel Philip MD Jan 17, 2020 17:23
[2020-01-17 20:00] VITALS: BP 143/81
[2020-01-17] MEDS: Atorvastatin 20mg tab ORAL SCH (20:14)
[2020-01-18] VITALS: BP 143/84
[2020-01-18 04:00] VITALS: BP 152/91
[2020-01-18] MEDS: Heparin 5000 units/ml inj SUBQ SCH ×3 (06:12→21:14)
[2020-01-18] MEDS: NovoLOG Insulin Flexpen SUBQ SCH ×4 (06:30→21:00)
[2020-01-18] MEDS: Albuterol/Ipratropium 3ml neb HHN SCH (07:41)
[2020-01-18] MEDS: Docusate 100mg cap ORAL SCH ×3 (08:24→17:01)
[2020-01-18] MEDS: Aspirin Baby 81mg ORAL SCH (08:24)
[2020-01-18] MEDS: Theophylline ER 100mg ORAL SCH ×2 (08:24→21:00)
[2020-01-18] MEDS: Tylenol #3 tab (300mg/30mg) ORAL PRN ×2 (08:25→16:30)
[2020-01-18] MEDS ORDERED: Solu-MEDROL 40mg Inj IVP SCH (09:00)
--- NOTE | 2020-01-18 11:39 | Cardiac Electrophysiology PN ---
Assessment/Plan Assessment/Plan 1. Eqq-QU-ozeqkhykn myocardial infarction. Initial troponin was negative. The second troponin is 0.215. The patient also has history of known coronary artery disease prior to the stent placement in 2009. Refused ECG. Echo showed EF 45% Avoid beta-emery as the patient has severe wheezing and asthma, but continue aspirin and statin. 2. Six beats of nonsustained ventricular tachycardia, could be due to myocardial infarction. EF 45% 3. Severe COPD and wheezing, on IV antibiotic and Solu-Medrol. 4. Hypertension, on Norvasc 5 mg daily. 5. Diabetes, on insulin. 6. Noncompliant DW RN Subjective Subjective 6 beats of VT and NQMI and hx of stent in 2009 Refused meds and tests. Off tele Objective Last 24 Hour Vital Signs Date Time Temp Pulse Resp B/P (MAP) Pulse Ox O2 Delivery O2 Flow Rate FiO2 01/18/20 09:00 Room Air 01/18/20 08:55 99.5 01/18/20 07:40 96 Room Air 21 01/18/20 04:00 99.5 92 18 152/91 (111) 95 01/18/20 00:00 99.6 98 20 143/84 (103) 96 01/17/20 21:00 Room Air 01/17/20 20:17 81 143/72 01/17/20 20:00 97.8 87 18 143/81 (101) 97 01/17/20 19:26 94 Room Air 21 01/17/20 16:00 97.5 85 18 133/79 (97) 98 01/17/20 15:46 97.8 Intake and Output 01/17/20 01/18/20 19:00 07:00 Intake Total 1762.5 ml 710 ml Balance 1762.5 ml 710 ml Intake Oral 1680 ml 710 ml IV Total 82.5 ml # Voids 5 3 Laboratory Tests Test 01/17/20 16:41 01/18/20 06:15 POC Whole Blood Glucose 121 MG/DL (74-106) H 88 MG/DL (74-106) Objective HEAD AND NECK: no JVD. LUNGS: Clear. CARDIOVASCULAR: regular S1 and S2 with no gallop or murmur. ABDOMEN: Soft. EXTREMITIES: No pitting edema. Pawel Philip MD Jan 18, 2020 11:39
[2020-01-18 11:58] VITALS: BP 159/97
--- NOTE | 2020-01-18 13:23 | Nephrology Progress Note ---
Assessment/Plan Problem List: (1) DELLA (acute kidney injury) (2) COPD with exacerbation (3) Cocaine abuse (4) Hypertension (5) CHF exacerbation (6) Elevated troponin I level (7) Elevated lipase (8) Abnormal LFTs Assessment Acute renal failure most likely superimposed on chronic kidney failure Presented with respiratory failure and hypoxia [id number]-hpekszcet myocardial infarction. Exacerbation of CHF, echocardiogram shows ejection fraction of 45% Hypertensive cardiomyopathy Cocaine abuse Diabetes type 1 COPD/exacerbation Smoker Noncompliant Homelessness Elevated lipase level Plan January 17: Today's labs drawn yet. Last serum creatinine 1.4 stable Previously: Optimize cardiac and pulmonary status Monitor renal parameters and electrolytes Avoid nephrotoxic's Per orders Subjective ROS Limited/Unobtainable: No Constitutional: Reports: malaise Objective Objective Last 24 Hour Vital Signs Date Time Temp Pulse Resp B/P (MAP) Pulse Ox O2 Delivery O2 Flow Rate FiO2 01/18/20 11:58 98.5 106 19 159/97 (117) 96 01/18/20 09:00 Room Air 01/18/20 08:55 99.5 01/18/20 07:40 96 Room Air 21 01/18/20 04:00 99.5 92 18 152/91 (111) 95 01/18/20 00:00 99.6 98 20 143/84 (103) 96 01/17/20 21:00 Room Air 01/17/20 20:17 81 143/72 01/17/20 20:00 97.8 87 18 143/81 (101) 97 01/17/20 19:26 94 Room Air 21 01/17/20 16:00 97.5 85 18 133/79 (97) 98 01/17/20 15:46 97.8 Intake and Output 01/17/20 01/18/20 19:00 07:00 Intake Total 1762.5 ml 710 ml Balance 1762.5 ml 710 ml Intake Oral 1680 ml 710 ml IV Total 82.5 ml # Voids 5 3 Laboratory Tests 01/17/20 16:41: POC Whole Blood Glucose 121H 01/18/20 06:15: POC Whole Blood Glucose 88 Height (Feet): 5 Height (Inches): 6.00 Weight (Pounds): 158 General Appearance: no apparent distress Cardiovascular: tachycardia Respiratory/Chest: decreased breath sounds Abdomen: distended Ignacio Callahan MD Jan 18, 2020 13:23
--- NOTE | 2020-01-18 19:13 | Internal Med Progress Note ---
Subjective Date of Service: Jan 18, 2020 Physician Name EricaAntoine Attending Physician Harpal Keller MD Current Medications Medications (Trade) Dose Ordered Sig/Michael Route PRN Reason Start Time Stop Time Status Last Admin Dose Admin Acetaminophen (Tylenol) 650 mg Q6H PRN ORAL Mild Pain (Pain Scale 1-3) 01/15/20 06:15 02/14/20 06:14 Acetaminophen/ Codeine Phosphate (Tylenol #3) 1 tab Q4H PRN ORAL Moderate-Severe Pain 01/15/20 06:15 01/22/20 06:14 01/18/20 16:30 Albuterol/ Ipratropium (Albuterol/ Ipratropium) 3 ml Q4H PRN HHN Shortness of Breath 01/15/20 06:15 01/20/20 06:14 Albuterol/ Ipratropium (Albuterol/ Ipratropium) 3 ml Q8HRT HHN 01/15/20 07:00 01/20/20 06:59 01/18/20 07:41 Amlodipine Besylate (Norvasc) 5 mg Q12HR ORAL 01/16/20 21:00 02/15/20 20:59 01/17/20 20:17 Aspirin (ASA) 81 mg DAILY ORAL 01/16/20 09:00 03/01/20 08:59 01/18/20 08:24 Atorvastatin Calcium (Lipitor) 20 mg BEDTIME ORAL 01/15/20 21:00 04/14/20 20:59 01/17/20 20:14 Clonidine HCl (Catapres Tab) 0.1 mg Q4H PRN ORAL SBP >160 01/15/20 06:15 04/14/20 06:14 01/16/20 23:37 Dextrose (Dextrose 50%) 25 ml Q30M PRN IV Hypoglycemia 01/15/20 06:15 04/14/20 06:14 Dextrose (Dextrose 50%) 50 ml Q30M PRN IV Hypoglycemia 01/15/20 06:15 04/14/20 06:14 Docusate Sodium (Colace) 100 mg THREE TIMES A DAY ORAL 01/16/20 13:00 02/15/20 12:59 01/18/20 08:24 Famotidine (Pepcid) 20 mg BID ORAL 01/16/20 11:30 04/15/20 11:29 01/18/20 08:24 Heparin Sodium (Porcine) (Heparin 5000 units/ml) 5,000 units EVERY 8 HOURS SUBQ 01/15/20 14:00 02/29/20 13:59 01/18/20 06:12 Insulin Aspart (NovoLOG) BEFORE MEALS AND HS SUBQ 01/15/20 06:30 04/14/20 06:29 Lorazepam (Ativan 2mg/ml 1ml) 0.5 mg Q4H PRN IV For Anxiety 01/15/20 07:15 01/22/20 07:14 01/17/20 20:19 Methylprednisolone Sodium Succinate (Solu-MEDROL) 20 mg DAILY IVP 01/18/20 09:00 04/14/20 09:59 01/18/20 09:17 Nitroglycerin (Ntg) 0.4 mg Q5M X 3 DOSES PRN SL Prn Chest Pain 01/15/20 07:15 02/14/20 07:14 Ondansetron HCl (Zofran) 4 mg Q4H PRN IVP Nausea & Vomiting 01/15/20 06:15 02/14/20 06:14 Promethazine HCl/ Codeine (Phenergan with Codeine) 5 ml Q6H PRN ORAL cough 01/15/20 07:15 02/14/20 07:14 Temazepam (Restoril) 15 mg HSPRN PRN ORAL Insomnia 01/15/20 07:15 01/22/20 07:14 01/17/20 20:14 Theophylline (Justice-Dur) 100 mg EVERY 12 HOURS ORAL 01/15/20 09:00 04/14/20 08:59 01/18/20 08:24 Allergies: Coded Allergies: LITHIUM (Verified Allergy, Unknown, 11/19/19) ROS Limited/Unobtainable: No Constitutional: Reports: no symptoms HEENT: Reports: no symptoms Cardiovascular: Reports: no symptoms Respiratory: Reports: no symptoms Gastrointestinal/Abdominal: Reports: no symptoms Genitourinary: Reports: no symptoms Neurologic/Psychiatric: Reports: no symptoms Subjective 69 YO F admitted with hypoxemic respiratory failure. Now COPD and CHF exacerbation. Cover for Int Tejas-DR Keller. Agitation towards staff Objective Last Vital Signs Date Time Temp Pulse Resp B/P (MAP) Pulse Ox O2 Delivery O2 Flow Rate FiO2 01/18/20 17:00 98.5 01/18/20 11:58 106 19 159/97 (117) 96 01/18/20 09:00 Room Air 01/18/20 07:40 21 01/16/20 07:48 2.0 Laboratory Tests Test 01/18/20 06:15 POC Whole Blood Glucose 88 MG/DL (74-106) Intake and Output 01/17/20 01/18/20 19:00 07:00 Intake Total 1762.5 ml 710 ml Balance 1762.5 ml 710 ml Intake Oral 1680 ml 710 ml IV Total 82.5 ml # Voids 5 3 Objective PHYSICAL EXAMINATION: GENERAL: Patient is awake, responsive, uncooperative. HEAD AND NECK: Pupils are equal and reactive to light. Extraocular movements intact. NECK: Supple. No JVD. LUNGS: Good air. Patient has expiratory wheezes. Decreased air in bases. No rhonchi. HEART: S1, S2. Distant heart sounds. No murmur or gallops. ABDOMEN: Soft, nondistended, nontender. Positive bowel sounds. EXTREMITIES: No cyanosis, clubbing, or edema. NEUROLOGIC: Cranial nerves II through XII grossly intact. Patient is moving all extremities. Gait was not assessed due to patient's status. RECTAL: Refused and deferred. GENITOURINARY: Refused and deferred. PSYCHIATRIC: Mood and affect is anxious. Assessment/Plan Assessment/Plan ASSESSMENT: 1. Acute hypoxemic respiratory failure, most likely secondary to acute CHF exacerbation in conjunction with COPD exacerbation. 2. Lactic acidosis. 3. Abnormal liver function. 4. Coronary artery disease with prior history of myocardial infarction. 5. Elevated troponin, most likely secondary to non-ST elevation [place] as a result of demand ischemia. 6. Diabetes type 2, uncontrolled. 7. Acute on chronic congestive heart failure. 8. Acute COPD exacerbation. 9. Hypertension. 10. Left eye conjunctivitis. 11. History of cocaine abuse. 12. Homeless. 13. Noncompliance with medication. 14. Hyperglycemia. 15. Possible underlying psychiatric disorder. PLAN: 1. Admit patient to Med/surg. We will follow up with the laboratory 2. antibiotic = Zosyn and ertapenem 3. Albuterol Nebulizer treatment PRN 4. Solu-Medrol 60 mg IV q.6. 5. Dr. Singh,=Pulmonary Critical Care consultation 6. Dr. Amanda = Surgery 7. Dr. Philip = Cardiology/ Electrophysiology 8. Code status is Full Code. 9. DVT prophylaxis =heparin subcutaneous. 10. Await psychiatry=Antoine Cordero MD Jan 18, 2020 19:12
--- NOTE | 2020-01-18 19:14 | Surgery Progress Note ---
Surgery Progress Note Subjective Symptoms: improved, tolerating diet, passing flatus, BM Objective Last 24 Hour Vital Signs Date Time Temp Pulse Resp B/P (MAP) Pulse Ox O2 Delivery O2 Flow Rate FiO2 01/18/20 17:00 98.5 01/18/20 11:58 98.5 106 19 159/97 (117) 96 01/18/20 09:00 Room Air 01/18/20 08:55 99.5 01/18/20 07:40 96 Room Air 21 01/18/20 04:00 99.5 92 18 152/91 (111) 95 01/18/20 00:00 99.6 98 20 143/84 (103) 96 01/17/20 21:00 Room Air 01/17/20 20:17 81 143/72 01/17/20 20:00 97.8 87 18 143/81 (101) 97 01/17/20 19:26 94 Room Air 21 I&O Intake and Output 01/17/20 01/18/20 19:00 07:00 Intake Total 1762.5 ml 710 ml Balance 1762.5 ml 710 ml Intake Oral 1680 ml 710 ml IV Total 82.5 ml # Voids 5 3 Dressing: saturated Wound: clean Cardiovascular: RSR Respiratory: clear, decreased breath sounds Abdomen: soft, non-tender, present bowel sounds Extremities: no edema, no tenderness, no cyanosis Laboratory Tests Test 01/18/20 06:15 POC Whole Blood Glucose 88 MG/DL (74-106) Plan Problems: (1) Lactic acid acidosis Assessment & Plan: 69F admitted with lactic acidosis abnormal lft's respiratory insufficiency labs improving dehydrated resuscitation trend labs okay for diet no n/v/f/c respiratory tx (2) Abnormal LFTs Assessment & Plan: mild elevation in LFT's. likely from meds vs dehydration okay for diet US ordered will follow with resc thank you (3) NSTEMI (non-ST elevated myocardial infarction) (4) CAD (coronary artery disease) (5) Diabetes (6) CHF exacerbation (7) COPD (chronic obstructive pulmonary disease) (8) Hypertension (9) Conjunctivitis, left eye (10) Cocaine abuse (11) Homelessness (12) Noncompliance (13) Respiratory failure with hypoxia (14) Hyperglycemia due to type 2 diabetes mellitus (15) Acute exacerbation of CHF (congestive heart failure) (16) COPD with exacerbation (17) Hypertensive cardiomegaly with heart failure Eduardo Amanda Jan 18, 2020 19:14
--- NOTE | 2020-01-18 19:15 | Pulmonology Progress Note ---
Subjective ROS Limited/Unobtainable: No Interval Events: late note for 01/16 Constitutional: Reports: no symptoms HEENT: Repors: no symptoms Allergies: Coded Allergies: LITHIUM (Verified Allergy, Unknown, 11/19/19) Objective Last 24 Hour Vital Signs Date Time Temp Pulse Resp B/P (MAP) Pulse Ox O2 Delivery O2 Flow Rate FiO2 01/18/20 17:00 98.5 01/18/20 11:58 98.5 106 19 159/97 (117) 96 01/18/20 09:00 Room Air 01/18/20 08:55 99.5 01/18/20 07:40 96 Room Air 21 01/18/20 04:00 99.5 92 18 152/91 (111) 95 01/18/20 00:00 99.6 98 20 143/84 (103) 96 01/17/20 21:00 Room Air 01/17/20 20:17 81 143/72 01/17/20 20:00 97.8 87 18 143/81 (101) 97 01/17/20 19:26 94 Room Air 21 Intake and Output 01/17/20 01/18/20 19:00 07:00 Intake Total 1762.5 ml 710 ml Balance 1762.5 ml 710 ml Intake Oral 1680 ml 710 ml IV Total 82.5 ml # Voids 5 3 General Appearance: WD/WN HEENT: normocephalic, atraumatic Respiratory: chest wall non-tender, lungs clear Breasts: no masses Cardiovascular: normal peripheral pulses Abdomen: normal bowel sounds, soft, non tender Neurologic: lens finisher II-XII grossly normal Laboratory Tests 01/18/20 06:15: POC Whole Blood Glucose 88 Current Medications Medications (Trade) Dose Ordered Sig/Michael Route PRN Reason Start Time Stop Time Status Last Admin Dose Admin Acetaminophen (Tylenol) 650 mg Q6H PRN ORAL Mild Pain (Pain Scale 1-3) 01/15/20 06:15 02/14/20 06:14 Acetaminophen/ Codeine Phosphate (Tylenol #3) 1 tab Q4H PRN ORAL Moderate-Severe Pain 01/15/20 06:15 01/22/20 06:14 01/18/20 16:30 Albuterol/ Ipratropium (Albuterol/ Ipratropium) 3 ml Q4H PRN HHN Shortness of Breath 01/15/20 06:15 01/20/20 06:14 Albuterol/ Ipratropium (Albuterol/ Ipratropium) 3 ml Q8HRT HHN 01/15/20 07:00 01/20/20 06:59 01/18/20 07:41 Amlodipine Besylate (Norvasc) 5 mg Q12HR ORAL 01/16/20 21:00 02/15/20 20:59 01/17/20 20:17 Aspirin (ASA) 81 mg DAILY ORAL 01/16/20 09:00 03/01/20 08:59 01/18/20 08:24 Atorvastatin Calcium (Lipitor) 20 mg BEDTIME ORAL 01/15/20 21:00 04/14/20 20:59 01/17/20 20:14 Clonidine HCl (Catapres Tab) 0.1 mg Q4H PRN ORAL SBP >160 01/15/20 06:15 04/14/20 06:14 01/16/20 23:37 Dextrose (Dextrose 50%) 25 ml Q30M PRN IV Hypoglycemia 01/15/20 06:15 04/14/20 06:14 Dextrose (Dextrose 50%) 50 ml Q30M PRN IV Hypoglycemia 01/15/20 06:15 04/14/20 06:14 Docusate Sodium (Colace) 100 mg THREE TIMES A DAY ORAL 01/16/20 13:00 02/15/20 12:59 01/18/20 08:24 Famotidine (Pepcid) 20 mg BID ORAL 01/16/20 11:30 04/15/20 11:29 01/18/20 08:24 Heparin Sodium (Porcine) (Heparin 5000 units/ml) 5,000 units EVERY 8 HOURS SUBQ 01/15/20 14:00 02/29/20 13:59 01/18/20 06:12 Insulin Aspart (NovoLOG) BEFORE MEALS AND HS SUBQ 01/15/20 06:30 04/14/20 06:29 Lorazepam (Ativan 2mg/ml 1ml) 0.5 mg Q4H PRN IV For Anxiety 01/15/20 07:15 01/22/20 07:14 01/17/20 20:19 Methylprednisolone Sodium Succinate (Solu-MEDROL) 20 mg DAILY IVP 01/18/20 09:00 04/14/20 09:59 01/18/20 09:17 Nitroglycerin (Ntg) 0.4 mg Q5M X 3 DOSES PRN SL Prn Chest Pain 01/15/20 07:15 02/14/20 07:14 Ondansetron HCl (Zofran) 4 mg Q4H PRN IVP Nausea & Vomiting 01/15/20 06:15 02/14/20 06:14 Promethazine HCl/ Codeine (Phenergan with Codeine) 5 ml Q6H PRN ORAL cough 01/15/20 07:15 02/14/20 07:14 Temazepam (Restoril) 15 mg HSPRN PRN ORAL Insomnia 01/15/20 07:15 01/22/20 07:14 01/17/20 20:14 Theophylline (Justice-Dur) 100 mg EVERY 12 HOURS ORAL 01/15/20 09:00 04/14/20 08:59 01/18/20 08:24 Assessment/Plan Problems: (1) COPD with exacerbation (2) Hypertension (3) Diabetes (4) Homelessness (5) Noncompliance (6) CAD (coronary artery disease) Assessment/Plan improving titrate fio2 and bipap to saturation of 92% check sputum IV steroids, taper to 20 IV abx, no Sputum yet pt refusing cardiac monitoring, I will down grade her to med/surg/ social service consult Enmanuel Singh MD Jan 18, 2020 19:15
[2020-01-18] MEDS: Atorvastatin 20mg tab ORAL SCH (21:00)
--- NOTE | 2020-01-20 11:09 | Discharge Summary ---
Discharge Summary Discharge Summary _ DATE OF ADMISSION: 01/15/2020 DATE OF DISCHARGE: 01/18/2020 Patient left AGAINST MEDICAL ADVICE REASON FOR ADMISSION: 69 years old female with past medical history significant for diabetes mellitus type 2, hypertension, coronary artery disease with history of AK, status post stent placement in 2009, asthma, noncompliance with medication, presented to emergency department complaining of shortness of breath. Patient was noted to be in respiratory distress: tripoding and wheezing. Pulse oximetry was 74% on room air. Patient had audible wheezing. Patient denied smoking or alcohol abuse . She denied taking any medications. She reported chest tightness , worsening on exertion. She reported dry nonproductive cough. No fever or chills. No nausea or vomiting . No sick contacts. Laboratory work-up revealed leukocytosis WBC 13.4 , stable hemoglobin, hematocrit. BUN 11, creatinine 1.5. Lactic acid 2.5. AST 142 ALT 86. Troponin 0.037, pro BNP 6769. Reveals sinus tachycardia Urine toxicology screen was positive for cocaine. Urinalysis revealed +1 protein , no evidence of urinary tract infection. Chest x-ray demonstrated cardiomegaly and bilateral perihilar interstitial edema. Patient received nebulizing treatment and steroid. Patient was placed on the BiPAP. Patient received diuretic. Patient subsequently admitted to telemetry floor for further management. CONSULTANTS: account support associate Dr. Baires pulmonary Dr. Singh superintendent plant protection Dr. Callahan surgery Dr. Amanda [facility] COU[facility]SE: Patient admitted to telemetry floor. Second troponin 0.215. Serial troponin trended. Fleet Manager followed-up. Echocardiogram demonstrated global left ventricular hypokinesis with left ventricular ejection fraction estimated to be 45%. Per account support associate patient had NSTEMI . Fleet Manager recommended avoid beta-emery since patient was severe COPD exacerbation , and continue aspirin and statin. Lipid panel revealed LDL 114. Patient counseled low-fat low-cholesterol diet. Blood pressure was managed with calcium channel emery. Supplemental oxygen provided and titrated to keep pulse oximetry above 92%. Pulmonary toilet provided. Patient started on the IV steroids and empiric antibiotics. Trial of theophylline instituted. Antitussive provided as needed DVT and GI prophylaxis provided. Blood cultures were negative. Patient demonstrated 6 beats of nonsustained ventricular tachycardia, most likely due to a myocardial infarction. Supplemental oxygen provided and titrated to keep pulse oximetry above 92%. Pulmonary toilet provided. Patient initially was on IV steroids , but given her DELLA and clinical improvement , IV steroids discontinued, and patient changed to oral steroids. Empiric antibiotic continued. Sputum culture was ordered. Patient showed noncompliance and declined cardiac monitoring. Volumes were closely monitored. Renal parameters electrolytes were closely monitored. Nephrotoxic's were avoided. Nephrotoxic's were avoided. Creatinine from 1.5 down to 1.4. AST and ALT trended down to normal. Patient was counseled on abstinence from illicit street drugs . Patient most likely had acute renal failure superimposed on chronic kidney disease as per superintendent plant protection. Patient was counseled on compliance with medication regimen and abstinence from illicit street drugs. On 01/17 patient decided to leave AGAINST MEDICAL ADVICE The risks and consequences of signing AGAINST MEDICAL ADVICE were discussed with patient in detail. Patient verbalized understanding, nevertheless signed AMA form and left. FINAL DIAGNOSES: Acute hypoxemic respiratory failure NSTEMI Severe COPD exacerbation CHF exacerbation Hypertensive cardiomyopathy Nonsustained ventricular tachycardia Coronary artery disease , status post stent placement 2009 Hypertension Acute renal failure, most likely superimposed on chronic kidney failure Diabetes mellitus type 2 Lactic acidosis Abnormal LFT- resolved Cocaine abuse Noncompliance Homelessness I have been assigned to dictate discharge summary for this account. I was not involved in the patient's management. Siri Bond NP Jan 20, 2020 11:09
== END 2020-01-18 21:55 | disposition left against medical advice (07) | DRG 194 ==
LOC: EDBD 23:02 → EMR 23:13 → 2W 01-15 00:58 → EDBEDREQ 01-15 01:12 → 2W 01-15 02:24 → 2E 01-16 01:56 → 4E 01-16 14:30
DX: I11.0 Hypertensive heart disease with heart failure (principal); J44.1 Chronic obstructive pulmonary disease with (acute) exacerbation; I21.4 Non-ST elevation (NSTEMI) myocardial infarction; I50.9 Heart failure, unspecified; E11.65 Type 2 diabetes mellitus with hyperglycemia; Z59.0 Homelessness; Z88.8 Allergy status to other drugs, medicaments and biological substances; I25.2 Old myocardial infarction; J96.01 Acute respiratory failure with hypoxia; I25.10 Atherosclerotic heart disease of native coronary artery without angina pectoris; H10.9 Unspecified conjunctivitis; Z91.14 Patient's other noncompliance with medication regimen; F14.11 Cocaine abuse, in remission; Z95.5 Presence of coronary angioplasty implant and graft; I47.2 Ventricular tachycardia; N17.9 Acute kidney failure, unspecified; Z79.4 Long term (current) use of insulin
CPT/HCPCS: 36415; 71045; 80053; 80061; 80307; 81003; 82150; 82550; 82962; 82977; 83036; 83605; 83690; 83735; 83880; 84100; 84443; 84484; 84550; 85007; 85025; 85651; 86140; 87040; 87081; 93005; 93306; 94640; 94660; 94664; 96365; 96366; 96375; 96376; 99291; J1815; J7620; U0002